=== PATIENT | male | born 1955 ===

== ENCOUNTER 2017-05-21 14:51 | Emergency (ER) | payer OTHER ==
[2017-05-21 14:51] VITALS: BMI 27.1
[2017-05-21] MEDS ORDERED: Sodium Chloride 0.9% 1,000 ML IV STA ×2 (15:13→19:59)
[2017-05-21 15:23] VITALS: TEMP 98.2
--- NOTE | 2017-05-21 15:42 | ED PDOC ---
Arrival/HPI - General Chief Complaint: Male Genitourinary Time Seen by Provider: 05/21/17 14:55 Historian: Patient, Family (son translates for patient) - History of Present Illness Narrative History of Present Illness (Text): 05/21/17 15:06 A 61 year old male, whose past medical history includes kidney stones, diabetes type 2, and HLD, whom is accompanied by his son, presents to the emergency department complaining of pain to tip of penis. Translated by son, patient reports also experiencing hematuria, with blood clots that sometimes cause urination to be stuck. Patient states this has never happened before. Has no other symptoms. PMD: Dr. Milagros Eastman Symptom Onset: Sudden Symptom Course: Unchanged Past Medical History - Provider Review Nursing Documentation Reviewed: Yes - Past History Past History: Non-Contributing - Infectious Disease Hx of Infectious Diseases: None - Tetanus Immunization Tetanus Immunization: Unknown - Cardiac Hx Hypertension: Yes Hx Pacemaker: No - Pulmonary Hx Asthma: Yes Hx Bronchitis: Yes (2 yrs ago) Hx Chronic Obstructive Pulmonary Disease (COPD): Yes - Neurological Hx Paralysis: No - HEENT Other/Comment: WEARS RX GLASSES - Renal Hx Kidney Stones: Yes (RIGHT 5 MM 07-12-12) - Endocrine/Metabolic Hx Diabetes Mellitus Type 2: Yes - Hematological/Oncological Hx Blood Transfusions: No Hx Blood Transfusion Reaction: No - Musculoskeletal/Rheumatological Hx Musculoskeletal Disorders: No - Psychiatric Hx Emotional Abuse: No Hx Physical Abuse: No Hx Substance Use: No - Past Surgical History Past Surgical History: Non-Contributing - Surgical History Other/Comment: for kidney stones - Anesthesia Hx Anesthesia: Yes Hx Anesthesia Reactions: No Hx Malignant Hyperthermia: No - Suicidal Assessment Feels Threatened In Home Enviroment: No Family/Social History - Physician Review Nursing Documentation Reviewed: Yes Family/Social History: No Known Family HX Smoking Status: Never Smoked Hx Alcohol Use: No Hx Substance Use: No Hx Substance Use Treatment: No Allergies/Home Meds Allergies/Adverse Reactions: Allergies No Known Allergies Allergy (Verified 06/10/12 13:22) Home Medications: Home Meds Medication Instructions Recorded Confirmed Albuterol Sulfate [Proventil Hfa] 1 puff IH Q6H PRN 05/21/17 05/21/17 Amitriptyline [Elavil] 20 mg PO DAILY 05/21/17 05/21/17 Aspirin [Adult Low Dose Aspirin EC] 1 tab PO DAILY 05/21/17 05/21/17 Divalproex [Depakote DR TAB] 1 tab PO HS 05/21/17 05/21/17 Enalapril Maleate [Vasotec] 1 tab PO DAILY 05/21/17 05/21/17 Famotidine [Pepcid] 1 tab PO DAILY 05/21/17 05/21/17 Fluticasone/Salmeterol [Airduo 1 puff IH BID 05/21/17 05/21/17 Respiclick 113-14 Mcg] Glimepiride [amaRYL] 1 tab PO BID 05/21/17 05/21/17 Insulin Glargine,Hum.rec.anlog 70 units SC DAILY 05/21/17 05/21/17 [Lantus Solostar] Loratadine [Claritin] 1 tab PO DAILY 05/21/17 05/21/17 Montelukast [Singulair] 1 tab PO DAILY 05/21/17 05/21/17 Mv,Min10/Folic Acid/D3/Ala/Lut 1 tab PO DAILY 05/21/17 05/21/17 [Strovite One Caplet] Simvastatin [Simvastatin] 1 tab PO HS 05/21/17 05/21/17 Sitagliptin Phos/Metformin HCl 1 tab PO BID 05/21/17 05/21/17 [Janumet 50-1,000 mg Tablet] Vitamin E Acid Succinate [Vitamin 1,000 unit PO DAILY 05/21/17 05/21/17 E] Zolpidem [Ambien] 1 tab PO HS PRN 05/21/17 05/21/17 Review of Systems - Physician Review All systems were reviewed & negative as marked: Yes - Review of Systems Constitutional: absent: Fevers, Night Sweats Gastrointestinal: absent: Diarrhea, Nausea, Vomiting Genitourinary Male: Hematuria, Other (pain to tip of penis) Physical Exam Vital Signs Reviewed: Yes Vital Signs Temp Pulse Resp BP Pulse Ox 05/21/17 20:05 99 H 17 123/67 96 05/21/17 17:00 92 H 18 122/66 98 05/21/17 15:55 98.2 F 102 H 17 115/58 L 97 05/21/17 15:23 98.2 F 110 H 17 110/58 L 96 Temperature: Afebrile Blood Pressure: Normal Pulse: Regular Respiratory Rate: Normal Appearance: Positive for: Well-Appearing Pain Distress: None Mental Status: Positive for: Alert and Oriented X 3 - Systems Exam Head: Present: Atraumatic, Normocephalic Pupils: Present: PERRL Extroacular Muscles: Present: EOMI Conjunctiva: Present: Normal Mouth: Present: Moist Mucous Membranes Neck: Present: Normal Range of Motion Respiratory/Chest: Present: Clear to Auscultation, Good Air Exchange. No: Respiratory Distress, Accessory Muscle Use Cardiovascular: Present: Regular Rate and Rhythm, Normal S1, S2. No: Murmurs Abdomen: Present: Normal Bowel Sounds. No: Tenderness, Distention, Peritoneal Signs Genitourinary Male: Present: Normal External Genitalia Back: Present: Normal Inspection Upper Extremity: Present: Normal Inspection. No: Cyanosis, Edema Lower Extremity: Present: Normal Inspection. No: Edema Neurological: Present: GCS=15, CN II-XII Intact, Speech Normal Skin: Present: Warm, Dry, Normal Color. No: Rashes Psychiatric: Present: Alert, Oriented x 3, Normal Insight, Normal Concentration Medical Decision Making ED Course and Treatment: 05/21/17 15:10 Impression: 61 year old male with pain to tip of penis and hematuria. No acute findings on physical examination. Plan: -- Abd/Pelvis CT -- Labs -- IV Fluids -- Urine Culture -- Urinalysis -- Reassess and disposition Progress Notes: 05/21/2017 15:58 Abd/Pelvis CT IMPRESSION: No acute abdominal pelvic pathology. No urolithiasis or evidence of recently passed genitourinary calculus. Dictator: Tony Alfred MD 05/21/17 19:[address] Talamantes, stating to him that I was unable to placed barth cath due to stricture of patient's tip of penis. Dr. Talamantes suggests that patient be sent home with antibiotics if he is ableto urinate normally, and to follow- up at his office in 3 days. - Lab Interpretations Lab Results: 05/21/17 15:10 05/21/17 15:10 Lab Results 05/21/17 16:50: Blood Type Confirm O POSITIVE 05/21/17 15:49: Blood Type O POSITIVE, Antibody Screen Negative, BBK History Checked No verified bt 05/21/17 15:10: Sodium 139, Potassium 4.3, Chloride 101, Carbon Dioxide 24, Anion Gap 18, BUN 20, Creatinine 0.9, Est GFR ( Amer) > 60, Est GFR (Non- Af Amer) > 60, Random Glucose 171 H, Calcium 9.2, Total Bilirubin 0.6, AST 29, ALT 36, Alkaline Phosphatase 64, Total Protein 7.3, Albumin 4.3, Globulin 3.0, Albumin/Globulin Ratio 1.4 05/21/17 15:10: Urine Color Red, Urine Appearance Turbid, Urine pH 6.0, Ur Specific [place] >= 1.030, Urine Protein 100 H, Urine Glucose (UA) 100 H, Urine Ketones Trace H, Urine Blood Large H, Urine Nitrate Negative, Urine Bilirubin Negative, Urine Urobilinogen 0.2, Ur Leukocyte Esterase Negative, Urine RBC Tntc , Urine WBC 2 - 5, Ur Epithelial Cells 0 - 2, Urine Bacteria Mod 05/21/17 15:10: PT 13.1 H, INR 1.15 H 05/21/17 15:10: WBC 16.4 H, RBC 4.32, Hgb 13.0 L, Hct 40.2 L, MCV 93.1, MCH 30.1 , MCHC 32.3, RDW 13.7, Plt Count 175, MPV 10.5, Gran % 82.0 H, Lymph % (Auto) 10.1 L, [place] % (Auto) 7.0 H, Eos % (Auto) 0.8 L, Baso % (Auto) 0.1, Gran # 13.44 H, Lymph # 1.7, [place] # 1.1 H, Eos # 0.1, Baso # 0.02 I have reviewed the lab results: Yes - RAD Interpretation Radiology Orders: 05/21/17 15:15 ABD & PELVIS W/O PO OR IV CONT [CT] Stat - Medication Orders Current Medication Orders: Sodium Chloride (Sodium Chloride 0.9%) 1,000 mls @ 999 mls/hr IV .Q1H1M STA Stop: 05/21/17 20:59 Last Admin: 05/21/17 20:05 Dose: 999 mls/hr eMAR Start Stop Document 05/21/17 20:05 IT (Rec: 05/21/17 20:05 [place] [facility] [id number] Intravenous Solution Start Date 05/21/17 Start Time 20:05 End Date 05/21/17 End time 21:05 Total Infusion Time 60 Discontinued Medications Sodium Chloride (Sodium Chloride 0.9%) 1,000 mls @ 999 mls/hr IV .Q1H1M STA Stop: 05/21/17 16:13 Last Admin: 05/21/17 15:32 Dose: 999 mls/hr eMAR Start Stop Document 05/21/17 15:32 OCS (Rec: 05/21/17 15:32 OCS [facility] [id number] Intravenous Solution Start Date 05/21/17 Start Time 15:32 End Date 05/21/17 End time 16:33 Total Infusion Time 61 Levofloxacin (Levaquin) 750 mg PO STAT STA Stop: 05/21/17 18:25 Last Admin: 05/21/17 19:06 Dose: 750 mg - PA / TRANSPORTATION MODELER / Resident Statement MD/DO has reviewed & agrees with the documentation as recorded. - Scribe Statement The provider has reviewed the documentation as recorded by the Duarte Bee Provider Scribe Attestation: All medical record entries made by the Duarte were at my direction and personally dictated by me. I have reviewed the chart and agree that the record accurately reflects my personal performance of the history, physical exam, medical decision making, and the department course for this patient. I have also personally directed, reviewed, and agree with the discharge instructions and disposition. Disposition/Present on Arrival - Present on Arrival Any Indicators Present on Arrival: No History of DVT/PE: No History of Uncontrolled Diabetes: No Urinary Catheter: No History of Decub. Ulcer: No History Surgical Site Infection Following: None - Disposition Have Diagnosis and Disposition been Completed?: Yes Diagnosis: Hematuria, Urethral stricture, UTI (urinary tract infection) Disposition: HOME/ ROUTINE Disposition Time: 20:10 Patient Plan: Discharge Condition: GOOD Discharge Instructions (ExitCare): Urinary Tract Infection in Men (ED), Acute Hematuria (ED), Dysuria (ED) Print Language: HONG KONGER Additional Instructions: Jonas - i AM SORRY THIS IS HAPPENING TO YOU. DRINK A LOT OF WATER AND SOME GATORAIDE THIS WEEKEND AND SEE THE UROLOGIST ON WEDNESDAY. HIS OFFICE NUMBER IS . rETURN TO US IF YOU CAN NOT URINATE THIS WEEKEND. bEST- dR. Kobe Flores Referrals: Milagros Eastman MD [Primary Care Provider] - Follow up with primary Forms: Kohort (Wolof)
[2017-05-21 15:46] LABS: BASO # 0.02 K/mm3 (0.0-2.0); BASO % 0.1 % (0.0-3.0); EOS # 0.1 (0.0-0.7); EOS % 0.8 % (1.5-5.0); GRAN # 13.44 (1.4-6.5); LYMPH # 1.7 (1.2-3.4); LYMPH % 10.1 % (22.0-35.0); MEAN CELL VOLUME 93.1 fl (80.0-105.0); MEAN CORPUSCULAR HEMOGLOBIN 30.1 pg (25.0-35.0); MEAN CORPUSCULAR HGB CONC 32.3 g/dl (31.0-37.0); MEAN PLATELET VOLUME 10.5 fl (7.0-11.0); MONO # 1.1 (0.1-0.6); RBC 4.32 10^6/uL (3.5-6.1); RED CELL DISTRIBUTION WIDTH 13.7 % (11.5-14.5); WHITE BLOOD COUNT 16.4 10^3/ul (4.5-11.0)
[2017-05-21 15:52] LABS: INR 1.15 (0.93-1.08); PROTHROMBIN TIME 13.1 SECONDS (9.4-12.5)
[2017-05-21 15:54] LABS: ALB/GLOB RATIO 1.4 (1.1-1.8); ALBUMIN 4.3 g/dL (3.0-4.8); ALT/SGPT 36 U/L (7-56); AST/SGOT 29 U/L (17-59); BLOOD UREA NITROGEN 20 mg/dL (7-21); CALCIUM 9.2 mg/dL (8.4-10.5); GFR AFRICAN-AMERICAN > 60; GFR NON-AFRICAN AMERICAN > 60
[2017-05-21 15:55] LABS: URINE BILIRUBIN NEGATIVE (NEGATIVE); URINE BLOOD LARGE (NEGATIVE); URINE GLUCOSE (UA) 100 mg/dL (NEGATIVE); URINE LEUKOCYTE ESTERASE NEGATIVE Leu/uL (NEGATIVE); URINE NITRATE NEGATIVE (NEGATIVE); URINE PROTEIN 100 mg/dL (<30 mg/dL); URINE UROBILINOGEN 0.2 E.U./dL (<1 E.U./dL)
[2017-05-21 15:56] LABS: URINE APPEARANCE TURBID (CLEAR); URINE COLOR RED (YELLOW); URINE RBC TNTC /hpf (0-2)
[2017-05-21 15:57] LABS: URINE BACTERIA MOD (NEG); URINE EPITHELIAL CELLS 0 - 2 /hpf (0-5)
--- NOTE | 2017-05-21 16:00 | CT ---
PROCEDURE: CT Abdomen and Pelvis without intravenous contrast HISTORY: Hematuria/Abdominal Pain, R/O stone COMPARISON: CT scan of the abdomen pelvis dated 06/10/2012. TECHNIQUE: Contiguous images were obtained from the domes of the diaphragms to the upper thighs without the administration of intravenous contrast. Oral contrast was not administered. Radiation dose: Total exam DLP = 590.6 mGy-cm. This CT exam was performed using one or more of the following dose reduction techniques: Automated exposure control, adjustment of the mA and/or kV according to patient size, and/or use of iterative reconstruction technique. FINDINGS: LOWER THORAX: Right and left lower lobe calcified granulomas. Bibasilar atelectasis. Heart size normal. LIVER: Unremarkable. No gross lesion or ductal dilatation. GALLBLADDER AND BILE DUCTS: Unremarkable. PANCREAS: Unremarkable. No gross lesion or ductal dilatation. SPLEEN: Unremarkable. ADRENALS: Unremarkable. No mass. KIDNEYS AND URETERS: Unremarkable. No hydronephrosis. No solid mass. VASCULATURE: Unremarkable. No aortic aneurysm. BOWEL: Unremarkable. No obstruction. No gross mural thickening. APPENDIX: Unremarkable. Normal appendix. PERITONEUM: Unremarkable. No free fluid. No free air. LYMPH NODES: Unremarkable. No enlarged lymph nodes. BLADDER: Unremarkable. REPRODUCTIVE: Unremarkable. BONES: Stable nonspecific 1.3 centimeter lucency in the right intertrochanteric femur (series 3, image 179). Spinal degenerative changes. Grade 1 retrolisthesis of L5 on S1. No acute fracture. OTHER FINDINGS: None. IMPRESSION: No acute abdominal pelvic pathology. No urolithiasis or evidence of recently passed genitourinary calculus. Additional stable findings as above.
[2017-05-21] MEDS ORDERED: levoFLOXacin 750 MG TAB PO STA (18:24)
[2017-05-21 20:06] VITALS: RESP 17
[2017-05-21 21:02] VITALS: BP 141/67; PULSE 89; O2SAT 98
== END 2017-05-21 21:02 | disposition home or self-care (01) ==
LOC: ED 14:51
DX: N39.0 Urinary tract infection, site not specified (principal); R31.9 Hematuria, unspecified; N35.9 Urethral stricture, unspecified; I10 Essential (primary) hypertension; E11.9 Type 2 diabetes mellitus without complications
CPT/HCPCS: 74176; 80053; 81001; 85025; 85610; 86850; 86900; 87086; 87181; 96360; 96361; 99284; J7040

== ENCOUNTER 2018-04-01 15:40 | Inpatient (IN) | payer MEDICARE, OTHER ==
[2018-04-01 15:48] VITALS: BMI 27.4
--- NOTE | 2018-04-01 16:52 | ED PDOC ---
Arrival/HPI - General Chief Complaint: Upper Extremity Problem/Injury Time Seen by Provider: 04/01/18 16:25 Historian: Patient, Spouse, Family (Son) - History of Present Illness Narrative History of Present Illness (Text): 04/01/18 16:52 A 62 year old male, whose past medical history includes hypertension, asthma, and diabetes, presents to the emergency department with a complaint of palpitations, abdominal pain, bloating, black stools, and lightheadedness. The patient's son translated for patient who is Estonian- speaking. The patient states that his symptoms began 2 days ago after eating out with his . He notes that he and his had the same food, but the who is at the bedside notes she felt fine. The patient also complaint of right shoulder pain. The patient denies fevers, chills, headache, dizziness, chest pain, shortness of breath, dyspnea on exertion, cough, nausea, vomiting, diarrhea, back pain, neck pain, urinary changes, or any other complaint. Time/Duration: Other (2 Days) Symptom Onset: Sudden Symptom Course: Unchanged Activities at Onset: Rest, Light Context: Home Past Medical History - Provider Review Nursing Documentation Reviewed: Yes - Past History Past History: Non-Contributing - Infectious Disease Hx of Infectious Diseases: None - Tetanus Immunization Tetanus Immunization: Unknown - Cardiac Hx Cardiac Disorders: Yes Hx Hypertension: Yes - Pulmonary Hx Respiratory Disorders: Yes Hx Asthma: Yes Hx Bronchitis: Yes ("SEVERAL YERAS AGO") Hx Chronic Obstructive Pulmonary Disease (COPD): Yes - Neurological Hx Neurological Disorder: No - HEENT Hx HEENT Disorder: No - Renal Hx Renal Disorder: Yes Hx Kidney Stones: Yes (RIGHT 5 MM 07-12-12) - Endocrine/Metabolic Hx Endocrine Disorders: Yes Hx Diabetes Mellitus Type 2: Yes - Hematological/Oncological Hx Blood Disorders: No - Integumentary Hx Dermatological Disorder: No - Musculoskeletal/Rheumatological Hx Musculoskeletal Disorders: Yes Other/Comment: HX:LEFT SHOULDER INJURY AT WORK. HX: RIGHT KNEE TORN MENISCUS - Gastrointestinal Hx Gastrointestinal Disorders: No - Genitourinary/Gynecological Hx Genitourinary Disorders: Yes Hx Hematuria: Yes - Psychiatric Hx Psychophysiologic Disorder: No Hx Substance Use: No - Past Surgical History Past Surgical History: Non-Contributing - Surgical History Hx Arthroscopy: Yes (RIGHT KNEE MENISCUS REPAIR) Hx Musculoskeletal Surgery: Yes (LEFT SHOULDER) Other/Comment: HX:SURGERY FOR KIDNEY STONES - Anesthesia Hx Anesthesia: Yes Hx Anesthesia Reactions: No Hx Malignant Hyperthermia: No - Suicidal Assessment Feels Threatened In Home Enviroment: No Family/Social History - Physician Review Nursing Documentation Reviewed: Yes Family/Social History: No Known Family HX Smoking Status: Never Smoked Hx Alcohol Use: No Hx Substance Use: No Hx Substance Use Treatment: No Allergies/Home Meds Allergies/Adverse Reactions: Allergies No Known Allergies Allergy (Verified 04/01/18 15:48) Home Medications: Home Meds Medication Instructions Recorded Confirmed Amitriptyline [Elavil] 20 mg PO DAILY 05/21/17 04/01/18 Aspirin [Adult Low Dose Aspirin EC] 1 tab PO DAILY 05/21/17 04/01/18 Divalproex [Depakote DR TAB] 1 tab PO HS 05/21/17 04/01/18 Famotidine [Pepcid] 1 tab PO DAILY 05/21/17 04/01/18 Fluticasone/Salmeterol [Airduo 1 puff IH BID 05/21/17 04/01/18 Respiclick 113-14 Mcg] Glimepiride [amaRYL] 1 tab PO BID 05/21/17 04/01/18 Insulin Glargine,Hum.rec.anlog 70 units SC DAILY 05/21/17 04/01/18 [Lantus Solostar] Montelukast [Singulair] 1 tab PO DAILY 05/21/17 04/01/18 Mv,Min10/Folic Acid/D3/Ala/Lut 1 tab PO DAILY 05/21/17 04/01/18 [Strovite One Caplet] RX: Enalapril Maleate [Vasotec] 1 tab PO DAILY 05/21/17 04/01/18 RX: Loratadine [Claritin] 1 tab PO DAILY 05/21/17 04/01/18 Simvastatin 1 tab PO HS 05/21/17 04/01/18 Vitamin E Acid Succinate [Vitamin 1,000 unit PO DAILY 05/21/17 04/01/18 E] Zolpidem [Ambien] 1 tab PO HS PRN 05/21/17 04/01/18 RX: MetFORMIN [glucoPHAGE] 1,000 mg PO DAILY 04/01/18 04/01/18 Sitagliptin Phos/Metformin HCl 1,000 mg PO DAILY 04/01/18 04/01/18 [Janumet 50-1,000 mg Tablet] Review of Systems - Physician Review All systems were reviewed & negative as marked: Yes - Review of Systems Constitutional: absent: Fevers Respiratory: absent: SOB, Cough Cardiovascular: Palpitations. absent: Chest Pain, RIDER Gastrointestinal: Abdominal Pain, Stool Changes (Black stool). absent: Diarrhea, Nausea, Vomiting Genitourinary Male: absent: Urinary Output Changes Musculoskeletal: absent: Back Pain, Neck Pain Neurological: absent: Headache, Dizziness Physical Exam Vital Signs Reviewed: Yes Vital Signs Temp Pulse Resp BP Pulse Ox 04/01/18 15:52 98.2 F 125 H 18 84/51 L 97 Temperature: Afebrile Blood Pressure: Hypotensive Pulse: Tachycardic Respiratory Rate: Normal Appearance: Positive for: Well-Appearing, Non-Toxic, Comfortable Pain Distress: None Mental Status: Positive for: Alert and Oriented X 3 - Systems Exam Head: Present: Atraumatic, Normocephalic Pupils: Present: PERRL Extroacular Muscles: Present: EOMI Conjunctiva: Present: Normal (No conjunctiva palor.) Mouth: Present: Moist Mucous Membranes Neck: Present: Normal Range of Motion Respiratory/Chest: Present: Clear to Auscultation, Good Air Exchange. No: Respiratory Distress, Accessory Muscle Use Cardiovascular: Present: Normal S1, S2, Tachycardic. No: Murmurs Abdomen: Present: Tenderness (Diffuse tenderness, more epigastric.), Distention. No: Normal Bowel Sounds (Decreased bowel sounds), Peritoneal Signs Rectal: Present: Other (Rectal exam performed. Bobbin Drier present. Black stool. Guaiac positive.) Back: Present: Normal Inspection Upper Extremity: Present: Normal Inspection. No: Cyanosis, Edema Lower Extremity: Present: Normal Inspection. No: Edema Neurological: Present: GCS=15, CN II-XII Intact, Speech Normal Skin: Present: Warm, Dry, Pale. No: Rashes Psychiatric: Present: Alert, Oriented x 3, Normal Insight, Normal Concentration Medical Decision Making ED Course and Treatment: 04/01/18 17:21 Impression: A 62 year old male presents to the emergency department with complaint of 2 day duration abdominal pain, black stools, right shoulder pain, lightheadedness, and bloating. Plan: -- EKG -- Chest X-ray -- Abdomen/Pelvis CT -- Labs -- Blood/ Urine Culture -- Urinalysis -- IV Fluids -- Reassess and disposition Prior Visits: Notes and results from previous visits were reviewed. Progress Notes: EKG: Ordered, reviewed, and independently interpreted the EKG. Rate : 102 BPM Rhythm : Sinus Tachycardia Interpretation : Normal intervals, normal axis. Early repole. Chest X-ray Signed By: Devang Champagne MD Date Signed: 04/01/18 171 IMPRESSION: No active disease. No significant interval change compared to the prior examination (s). 04/01/18 17:37: Code sepsis called. 04/01/18 18:22 Explained to him the risks and benefits of blood transfusion. Patient verbalized understanding and was translated from Estonian to Faroese by harleen Nicole, which patient and spouse requested. Patient consented for blood transfusion. PROCEDURE: CT Abdomen and Pelvis with contrast Signed By: Devang Champagne MD Date Signed: 04/01/181827 IMPRESSION: No significant or acute findings to account for/relate to the clinical presentation. Additional benign and/or incidental findings described above. No significant interval change compared to the prior examination (s). 04/01/18 18:55: Dr. Cole paged. 04/01/18 19:22: Case discussed in detail with Dr. Cole who accepts patient to her service. Requests Dr. Vaz for GI consult. - Lab Interpretations I have reviewed the lab results: Yes - RAD Interpretation Radiology Orders: 04/01/18 16:35 CHEST PORTABLE [RAD] Stat - EKG Interpretation Interpreted by ED Physician: Yes Type: 12 lead EKG - Scribe Statement The provider has reviewed the documentation as recorded by the Harleen Nicole Provider Scribe Attestation: All medical record entries made by the Harleen were at my direction and personally dictated by me. I have reviewed the chart and agree that the record accurately reflects my personal performance of the history, physical exam, medical decision making, and the department course for this patient. I have also personally directed, reviewed, and agree with the discharge instructions and disposition. Disposition/Present on Arrival - Present on Arrival Any Indicators Present on Arrival: No History of DVT/PE: No History of Uncontrolled Diabetes: No Urinary Catheter: No History of Decub. Ulcer: No History Surgical Site Infection Following: None - Disposition Have Diagnosis and Disposition been Completed?: Yes Diagnosis: GIB (gastrointestinal bleeding), Dehydration, Symptomatic anemia, Abdominal pain, Anemia requiring transfusions Disposition: HOSPITALIZED Disposition Time: 19:25 Patient Plan: Admission, Telemetry Patient Problems: Current Active Problems Problem Status Onset Abdominal pain Acute Anemia requiring transfusions Acute Dehydration Acute GIB (gastrointestinal bleeding) Acute Symptomatic anemia Acute Condition: STABLE
[2018-04-01] MEDS ORDERED: Sodium Chloride 0.9% 1,000 ML IV STA ×2 (16:56→17:54)
--- NOTE | 2018-04-01 17:19 | RAD ---
Date of service: 04/01/2018 HISTORY: dizzy COMPARISON: 09/30/2017 FINDINGS: LUNGS: No active pulmonary disease. PLEURA: No significant pleural effusion identified, no pneumothorax apparent. CARDIOVASCULAR: No atherosclerotic calcification present Normal. OSSEOUS STRUCTURES: No significant abnormalities. VISUALIZED UPPER ABDOMEN: Normal. OTHER FINDINGS: None. IMPRESSION: No active disease. No significant interval change compared to the prior examination(s).
[2018-04-01 17:27] LABS: BASO # 0.03 K/mm3 (0.0-2.0); BASO % 0.2 % (0.0-3.0); EOS # 0.1 (0.0-0.7); GRAN # 9.72 (1.4-6.5); GRAN % 75.1 % (50.0-68.0); LYMPH # 2.5 (1.2-3.4); LYMPH % 19.5 % (22.0-35.0); MEAN CELL VOLUME 91.2 fl (80.0-105.0); MEAN CORPUSCULAR HEMOGLOBIN 30.4 pg (25.0-35.0); MEAN CORPUSCULAR HGB CONC 33.3 g/dl (31.0-37.0); MEAN PLATELET VOLUME 9.5 fl (7.0-11.0); MONO # 0.6 (0.1-0.6); MONO % 4.2 % (1.0-6.0); RBC 2.17 10^6/uL (3.5-6.1); RED CELL DISTRIBUTION WIDTH 14.2 % (11.5-14.5)
[2018-04-01 17:28] LABS: VENOUS BLOOD GAS BASE EXCESS -4.7 mmol/L (0.0-2.0); VENOUS BLOOD GAS PO2 150 mm/Hg (30-55); VENOUS BLOOD PH 7.35 (7.32-7.43)
[2018-04-01 17:36] LABS: HEMOGLOBIN 6.6 g/dL (14.0-18.0)
[2018-04-01 17:39] LABS: ALB/GLOB RATIO 1.4 (1.1-1.8); ALBUMIN 3.3 g/dL (3.0-4.8); ALT/SGPT 26 U/L (7-56); AST/SGOT 19 U/L (17-59); BLOOD UREA NITROGEN 40 mg/dL (7-21); CALCIUM 8.5 mg/dL (8.4-10.5); GFR NON-AFRICAN AMERICAN > 60; LIPASE 317 U/L (23-300)
[2018-04-01] MEDS ORDERED: Iohexol 350 MG/100 ML VIAL ONE (17:39)
[2018-04-01 17:50] LABS: TROPONIN I 0.02 ng/mL
[2018-04-01] MEDS ORDERED: Piperacill/Tazo 4.5gm in NS 4.5 GM/100 ML BAG IVPB STA (18:01)
--- NOTE | 2018-04-01 18:32 | CT ---
Date of service: 04/01/2018 PROCEDURE: CT Abdomen and Pelvis with contrast HISTORY: abd pain/GIB COMPARISON: 05/21/2017. TECHNIQUE: Intravenous contrast dose: 100 cc Omnipaque 350. Radiation dose: Total exam DLP = 655.71 mGy-cm. This CT exam was performed using one or more of the following dose reduction techniques: Automated exposure control, adjustment of the mA and/or kV according to patient size, and/or use of iterative reconstruction technique. FINDINGS: LOWER THORAX: Unremarkable. LIVER: Unremarkable. No gross lesion or ductal dilatation. GALLBLADDER AND BILE DUCTS: Unremarkable. PANCREAS: Unremarkable. No gross lesion or ductal dilatation. SPLEEN: Unremarkable. ADRENALS: Unremarkable. No mass. KIDNEYS AND URETERS: Unremarkable. No hydronephrosis. No solid mass. VASCULATURE: Unremarkable. No aortic aneurysm. No atherosclerotic calcification or mural plaque present. BOWEL: Unremarkable. No obstruction. No gross mural thickening. APPENDIX: No abnormalities to suggest acute appendicitis. No right lower quadrant inflammatory processes identified. PERITONEUM: Unremarkable. No free fluid. No free air. LYMPH NODES: Unremarkable. No enlarged lymph nodes. BLADDER: Unremarkable. REPRODUCTIVE: Unremarkable. BONES: No acute fracture. Stable lucency right intertrochanteric region. OTHER FINDINGS: None. IMPRESSION: No significant or acute findings to account for/ related to the clinical presentation. Additional benign and/or incidental findings described above. No significant interval change compared to the prior examination(s).
[2018-04-01 18:46] LABS: URINE BILIRUBIN NEGATIVE (NEGATIVE); URINE BLOOD NEGATIVE (NEGATIVE); URINE GLUCOSE (UA) 250 mg/dL (NEGATIVE); URINE LEUKOCYTE ESTERASE SMALL Leu/uL (NEGATIVE); URINE PROTEIN NEGATIVE mg/dL (<30 mg/dL); URINE UROBILINOGEN 0.2 E.U./dL (<1 E.U./dL)
[2018-04-01 18:47] LABS: URINE APPEARANCE CLEAR (CLEAR); URINE COLOR LIGHT YELLOW (YELLOW)
[2018-04-01 18:51] LABS: URINE BACTERIA MOD (NEG); URINE RBC 0 - 2 /hpf (0-2)
[2018-04-01 20:37] LABS: VENOUS BLOOD GAS BASE EXCESS -3.5 mmol/L (0.0-2.0); VENOUS BLOOD GAS PO2 206 mm/Hg (30-55); VENOUS BLOOD PH 7.34 (7.32-7.43)
[2018-04-01] MEDS ORDERED: SALMETEROL IH SCH (22:15)
[2018-04-01] MEDS ORDERED: FLUTICASONE IH SCH (22:15)
--- NOTE | 2018-04-01 23:53 | HP ---
DATE OF EXAM: 04/01/2018 The patient is a 62-year-old male. The patient was seen and examined on 04/01/2018. CHIEF COMPLAINT: Abdominal pain. HISTORY OF PRESENT ILLNESS: Mr. Elías Madden is a 62-year-old male with past medical history of hypertension, asthma, and diabetes mellitus, came to the Emergency Department with the complaints of palpitation, abdominal pain, bloating, black stool, and lightheadedness. The patient's son was on the bedside. The patient states that his symptoms began two days ago after eating out with his . His Berna was sitting on the bedside also. He noticed that he and his had seafood, but the who is at the bedside noticed she felt fine. The patient is also complaining of right shoulder pain. The patient denies fever, chills, headache, dizziness, cough, nausea or vomiting. The patient looks pale for me. Discussion done with ER physician. Call GI consult. the patient. PAST MEDICAL HISTORY: As above. Hypertension, asthma, diabetes mellitus, bronchitis several years ago, COPD; yes, right kidney stones, left shoulder injury at work, right knee torn meniscus, and hematuria. FAMILY HISTORY: Father and mother, noncontributory. HABITS: Never smoked. No drugs. No ethanol. ALLERGIES: THE PATIENT IS NOT ALLERGIC WITH ANY MEDICATIONS. HOME MEDICATIONS: Depakote, Vasotec, Pepcid, glimepiride, Claritin, Singulair, Ambien, and Glucophage. REVIEW OF SYSTEMS: The patient was seen and examined on the bedside in the ER. , Berna and son is on the bedside. Complaining of abdominal pain and looks pale. No cough or shortness of breath. Having stool changes. No diarrhea, nausea or vomiting. No urinary changes. No back pain. No headache. No dizziness. PHYSICAL EXAMINATION VITAL SIGNS: Temperature 98.2, pulse 125, respiratory rate 18, blood pressure 84/51 and pulse oximetry 94. HEAD: Head; normocephalic and atraumatic. Eyes; PERRLA. Extraocular muscles intact. Conjunctivae clear. Nose patent. Mucous membranes moist. NECK: Supple. No carotid bruits, JVD, or thyromegaly. CHEST: Bilaterally symmetrical. HEART: S1 and S2 positive. LUNGS: Clear to auscultation. ABDOMEN: Diffuse tenderness more in epigastric. RECTAL EXAMINATION: Showed black stool, guaiac positive. EXTREMITIES: No edema. No cyanosis. NEUROLOGIC: The patient is awake and alert. Moving all four extremities. No focal deficits. LABORATORY DATA: White blood cell 13, hemoglobin 6.6, hematocrit 19.8, and platelets 185. Sodium 133, potassium 4.4, BUN 40, creatinine 1. Glucose 219. Magnesium 1.6. ASSESSMENT AND PLAN: Mr. Elías Madden is a 62-year-old male with leukocytosis, severe anemia, dehydrated, hyperglycemia, hypomagnesemia, glucosuria, ketonuria, and urinary tract infection; did CAT scan of abdomen and pelvis, reviewed by me, hypertension, asthma, diabetes mellitus, history of bronchitis and chronic obstructive pulmonary disease, history of kidney stones, history of left shoulder injury at work, right knee torn meniscus repair, and status post arthroscopy. We admitted the patient. Blood cultures done. Urine cultures done. Gave normal saline. Zosyn give. Gastrointestinal consult called with Dr. Vaz. Discussion done with the son and . Repeat labs. We will follow. Elina Cole MD
[2018-04-02] MEDS: Magnesium Oxide 400 mg Tab UD PO SCH ×2 (01:26→09:43)
[2018-04-02] MEDS: metroNIDAZOLE IV 500 mg/100 ml 500 MG/100 ML BAG IVPB SCH ×3 (05:18→22:12)
[2018-04-02] MEDS ORDERED: Sodium Chloride 0.9% 100 ML IV SCH (08:00)
[2018-04-02 08:32] LABS: IRON 75 ug/dL (45-180)
[2018-04-02] MEDS: Dextrose 5%/0.9% NS 1,000 ML IV SCH ×2 (08:36→17:24)
[2018-04-02 08:39] LABS: HEMOGLOBIN 8.4 g/dL (14.0-18.0); MEAN CELL VOLUME 90.4 fl (80.0-105.0); MEAN CORPUSCULAR HEMOGLOBIN 30.9 pg (25.0-35.0); MEAN CORPUSCULAR HGB CONC 34.1 g/dl (31.0-37.0); MEAN PLATELET VOLUME 9.6 fl (7.0-11.0); RBC 2.72 10^6/uL (3.5-6.1); RED CELL DISTRIBUTION WIDTH 14.4 % (11.5-14.5); WHITE BLOOD COUNT 9.5 10^3/uL (4.5-11.0)
[2018-04-02 08:41] LABS: % IRON SATURATION 25 % (20-55); TOTAL IRON BINDING CAPACITY 294 ug/dL (261-462)
[2018-04-02 08:44] LABS: TROPONIN I < 0.01 ng/mL
[2018-04-02 08:49] LABS: BLOOD UREA NITROGEN 21 mg/dL (7-21); GFR NON-AFRICAN AMERICAN > 60; HDL CHOLESTEROL 29 mg/dL (29-60)
[2018-04-02 08:54] LABS: LDL CHOLESTEROL 70 mg/dL (0-129)
[2018-04-02 09:14] LABS: INR 1.05; PARTIAL THROMBOPLASTIN TIME 27.6 Seconds (25.1-36.5); PROTHROMBIN TIME 12.1 SECONDS (9.4-12.5)
[2018-04-02] MEDS: Divalproex 125 mg EC Sprinkle Cap PO SCH ×2 (09:42→22:07)
[2018-04-02] MEDS: Insulin Reg-LOW-Coverage SC SCH ×4 (09:43→22:41)
--- NOTE | 2018-04-02 09:56 | CARD ---
APPROVED REPORT Date of service: 04/01/2018 EKG Measurement Heart [id number] <Conclusion> Sinus tachycardia ST elevation, consider early repolarization, pericarditis, or injury Abnormal ECG
[2018-04-02] MEDS: Pantoprazole 40mg/100mL NS 40 MG/100 ML BAG IVPB SCH ×3 (10:25→22:08)
[2018-04-02] MEDS: cefTRIAXone 1 gm 1 GM/100 ML BAG IVPB SCH (10:25)
--- NOTE | 2018-04-02 12:19 | CP.PCM.CON ---
<Emily Nichole - Last Filed: 04/02/18 12:20> History of Present Illness - History of Present Illness History of Present Illness: GI Fellow PGY5 Consult Note This is a 62 year old male with a past medical history includes HTN, HLD, DM, Asthma who presents to the ER with a complaints of palpitations, abdominal pain, bloating, black stools, and lightheadedness. The patient states that his symptoms began 2 days ago. Pt reports noticing black colored stool. Last BM was yesterday morning. He denies any hx of GI bleed, denies any NSAID use. He reports having colonoscopy 10yrs ago that was normal with no reported polyps. In the ER pt was found to have a Hgb 6.6 from baseline of 13 (04/2017). Pt was tachycardia and hypotensive. GI team was not called to discuss acute pt on presentation in the ER. Pt has now received 2U PRBCs overnight, no active bleeding and Vitals borderline stable. ROS: A 12pt ROS was negative except as above Pmhx; As stated in HPI PsHx: Shoulder, knee repair and kidney stone procedure FHx: Negative for colon cancer SHx: Denies tobacco, etoh, drugs Past Patient History - Infectious Disease Hx of Infectious Diseases: None - Tetanus Immunizations Tetanus Immunization: Unknown - Past Medical History & Family History Past Medical History?: Yes - Past Social History Smoking Status: Never Smoked - CARDIAC Hx Cardiac Disorders: Yes Hx Hypertension: Yes - PULMONARY Hx Respiratory Disorders: Yes Hx Asthma: Yes Hx Bronchitis: Yes ("SEVERAL YERAS AGO") Hx Chronic Obstructive Pulmonary Disease (COPD): Yes - NEUROLOGICAL Hx Neurological Disorder: No - HEENT Hx HEENT Problems: No - RENAL Hx Chronic Kidney Disease: Yes Hx Kidney Stones: Yes (RIGHT 5 MM 07-12-12) - ENDOCRINE/METABOLIC Hx Endocrine Disorders: Yes Hx Diabetes Mellitus Type 2: Yes - HEMATOLOGICAL/ONCOLOGICAL Hx Blood Disorders: No - INTEGUMENTARY Hx Dermatological Problems: No - MUSCULOSKELETAL/RHEUMATOLOGICAL Hx Falls: No - GASTROINTESTINAL Hx Gastrointestinal Disorders: No - GENITOURINARY/GYNECOLOGICAL Hx Genitourinary Disorders: Yes Hx Hematuria: Yes - PSYCHIATRIC Hx Psychophysiologic Disorder: No - SURGICAL HISTORY Hx Musculoskeletal Surgery: Yes (LEFT SHOULDER) Other/Comment: HX:SURGERY FOR KIDNEY STONES - ANESTHESIA Hx Anesthesia: Yes Hx Anesthesia Reactions: No Hx Malignant Hyperthermia: No Meds Allergies/Adverse Reactions: Allergies Allergy/AdvReac Type Severity Reaction Status Date / Time No Known Allergies Allergy Verified 04/01/18 15:48 - Medications Medications: Current Medications Amitriptyline HCl (Elavil) 20 mg PO DAILY [facility] Last Admin: 04/02/18 09:43 Dose: Not Given Divalproex Sodium (Depakote Sprinkles) 125 mg PO HS [facility] Last Admin: 04/02/18 09:42 Dose: Not Given Ceftriaxone Sodium (Rocephin 1 Gram Ivpb) 1 gm in 100 mls @ 100 mls/hr IVPB DAILY [facility]; Protocol Last Admin: 04/02/18 10:25 Dose: 100 mls/hr Metronidazole (Flagyl) 500 mg in 100 mls @ 100 mls/hr IVPB Q8 [facility]; Protocol Last Admin: 04/02/18 05:18 Dose: 100 mls/hr Pantoprazole Sodium (Protonix 40mg Ivpb) 40 mg in 100 mls @ 20 mls/hr IVPB .Q5H [facility] Last Admin: 04/02/18 10:25 Dose: 20 mls/hr Sodium Chloride (Sodium Chloride 0.9%) 100 mls @ 125 mls/hr IV .Q48M [facility] Dextrose/Sodium Chloride (Dextrose 5%/0.9% Ns 1000 Ml) 1,000 mls @ 100 mls/hr IV .Q10H [facility] Last Admin: 04/02/18 08:36 Dose: 100 mls/hr Insulin Human Regular (Humulin R Low) 0 units SC ACHS [facility]; Protocol Last Admin: 04/02/18 09:43 Dose: Not Given Loratadine (Claritin) 10 mg PO DAILY [facility] Last Admin: 04/02/18 09:42 Dose: Not Given Magnesium Oxide (Mag-Ox) 400 mg PO BID [facility] Last Admin: 04/02/18 09:43 Dose: Not Given Non-Formulary Medication (Fluticasone/Salmeterol [Airduo Respiclick 113-14 Mcg]) 1 puff IH BID [facility] Ondansetron HCl (Zofran Inj) 4 mg IVP Q6 PRN PRN Reason: Nausea/Vomiting Physical Exam - Constitutional Appears: Non-toxic, No Acute Distress - Eye Exam Eye Exam: EOMI, Normal appearance, PERRL Pupil Exam: PERRL - ENT Exam ENT Exam: Mucous Membranes Dry - Respiratory Exam Respiratory Exam: Clear to Auscultation Bilateral, NORMAL BREATHING PATTERN - Cardiovascular Exam Cardiovascular Exam: Tachycardia, +S1, +S2 - GI/Abdominal Exam GI & Abdominal Exam: Normal Bowel Sounds, Soft. absent: Distended, Organomegaly, Tenderness - Rectal Exam Rectal Exam: Black Stool - Extremities Exam Extremities exam: Positive for: full ROM, normal inspection - Neurological Exam Neurological exam: Alert, Oriented x3 - Psychiatric Exam Psychiatric exam: Normal Affect, Normal Mood - Skin Skin Exam: Dry, Intact, Normal Color, Warm Results - Vital Signs Recent Vital Signs: Last Vital Signs Temp 98.7 F 04/02/18 06:00 Pulse 82 04/02/18 10:00 Resp 18 04/02/18 06:00 BP 103/65 04/02/18 06:00 Pulse Ox 98 04/02/18 06:00 - Labs Result Diagrams: 04/02/18 08:00 04/02/18 08:15 Labs: Laboratory Results - last 24 hr 04/01/18 04/01/18 04/01/18 16:10 17:10 17:10 WBC 13.0 H RBC 2.17 L Hgb 6.6 L* D Hct 19.8 L* MCV 91.2 MCH 30.4 MCHC 33.3 RDW 14.2 Plt Count 185 MPV 9.5 Gran % 75.1 H Lymph % (Auto) 19.5 L [place] % (Auto) 4.2 Eos % (Auto) 1.0 L Baso % (Auto) 0.2 Gran # 9.72 H Lymph # (Auto) 2.5 [place] # (Auto) 0.6 Eos # (Auto) 0.1 Baso # (Auto) 0.03 PT INR APTT pO2 150 H VBG pH 7.35 VBG pCO2 37.0 L VBG HCO3 20.4 L VBG Total CO2 21.5 L VBG O2 Sat (Calc) 97.8 H VBG Base Excess -4.7 L VBG Potassium 4.4 Sodium 134.0 Chloride 105.0 Glucose 238 H Lactate 4.1 H* FiO2 21.0 Potassium Carbon Dioxide Anion Gap BUN Creatinine Est GFR ( Amer) Est GFR (Non-Af Amer) POC Glucose (mg/dL) 194 H Random Glucose Calcium Phosphorus Magnesium Iron TIBC % Saturation Total Bilirubin AST ALT Alkaline Phosphatase Lactate Dehydrogenase Total Creatine Kinase Troponin I Total Protein Albumin Globulin Albumin/Globulin Ratio Triglycerides Cholesterol LDL Cholesterol Direct HDL Cholesterol Lipase TSH 3rd Generation Venous Blood Potassium 4.4 Urine Color Urine Appearance Urine pH Ur Specific [place] Urine Protein Urine Glucose (UA) Urine Ketones Urine Blood Urine Nitrate Urine Bilirubin Urine Urobilinogen Ur Leukocyte Esterase Urine RBC Urine WBC Ur Epithelial Cells Urine Bacteria Blood Type Antibody Screen Crossmatch BBK History Checked 04/01/18 04/01/18 04/01/18 17:10 18:42 18:42 WBC RBC Hgb Hct MCV MCH MCHC RDW Plt Count MPV Gran % Lymph % (Auto) [place] % (Auto) Eos % (Auto) Baso % (Auto) Gran # Lymph # (Auto) [place] # (Auto) Eos # (Auto) Baso # (Auto) PT INR APTT pO2 VBG pH VBG pCO2 VBG HCO3 VBG Total CO2 VBG O2 Sat (Calc) VBG Base Excess VBG Potassium Sodium 133 Chloride 104 Glucose Lactate FiO2 Potassium 4.4 Carbon Dioxide 20 L Anion Gap 13 BUN 40 H Creatinine 1.0 Est GFR ( Amer) > 60 Est GFR (Non-Af Amer) > 60 POC Glucose (mg/dL) Random Glucose 219 H Calcium 8.5 Phosphorus 2.8 Magnesium 1.6 L Iron TIBC % Saturation Total Bilirubin 0.2 AST 19 ALT 26 Alkaline Phosphatase 61 Lactate Dehydrogenase Total Creatine Kinase Troponin I 0.02 Total Protein 5.6 L Albumin 3.3 Globulin 2.3 Albumin/Globulin Ratio 1.4 Triglycerides Cholesterol LDL Cholesterol Direct HDL Cholesterol Lipase 317 H TSH 3rd Generation Venous Blood Potassium Urine Color Light yellow Urine Appearance Clear Urine pH 6.0 Ur Specific [place] 1.020 Urine Protein Negative Urine Glucose (UA) 250 H Urine Ketones Trace H Urine Blood Negative Urine Nitrate Negative Urine Bilirubin Negative Urine Urobilinogen 0.2 Ur Leukocyte Esterase Small H Urine RBC 0 - 2 Urine WBC 1 - 3 Ur Epithelial Cells None Urine Bacteria Mod Blood Type O POSITIVE Antibody Screen Negative Crossmatch See Detail BBK History Checked Patient has bt 04/01/18 04/02/18 04/02/18 20:30 07:26 08:00 WBC 9.5 D RBC 2.72 L Hgb 8.4 L Hct 24.6 L MCV 90.4 MCH 30.9 MCHC 34.1 RDW 14.4 Plt Count 155 MPV 9.6 Gran % Lymph % (Auto) [place] % (Auto) Eos % (Auto) Baso % (Auto) Gran # Lymph # (Auto) [place] # (Auto) Eos # (Auto) Baso # (Auto) PT INR APTT pO2 206 H VBG pH 7.34 VBG pCO2 41.0 VBG HCO3 22.1 VBG Total CO2 23.4 VBG O2 Sat (Calc) 98.6 H VBG Base Excess -3.5 L VBG Potassium 4.1 Sodium 137.0 Chloride 108.0 H Glucose 154 H Lactate 1.9 FiO2 21.0 Potassium Carbon Dioxide Anion Gap BUN Creatinine Est GFR ( Amer) Est GFR (Non-Af Amer) POC Glucose (mg/dL) 79 Random Glucose Calcium Phosphorus Magnesium Iron TIBC % Saturation Total Bilirubin AST ALT Alkaline Phosphatase Lactate Dehydrogenase Total Creatine Kinase Troponin I Total Protein Albumin Globulin Albumin/Globulin Ratio Triglycerides Cholesterol LDL Cholesterol Direct HDL Cholesterol Lipase TSH 3rd Generation Venous Blood Potassium 4.1 Urine Color Urine Appearance Urine pH Ur Specific [place] Urine Protein Urine Glucose (UA) Urine Ketones Urine Blood Urine Nitrate Urine Bilirubin Urine Urobilinogen Ur Leukocyte Esterase Urine RBC Urine WBC Ur Epithelial Cells Urine Bacteria Blood Type Antibody Screen Crossmatch BBK History Checked 04/02/18 04/02/18 04/02/18 08:15 08:15 08:15 WBC RBC Hgb Hct MCV MCH MCHC RDW Plt Count MPV Gran % Lymph % (Auto) [place] % (Auto) Eos % (Auto) Baso % (Auto) Gran # Lymph # (Auto) [place] # (Auto) Eos # (Auto) Baso # (Auto) PT INR APTT pO2 VBG pH VBG pCO2 VBG HCO3 VBG Total CO2 VBG O2 Sat (Calc) VBG Base Excess VBG Potassium Sodium 137 Chloride 108 H Glucose Lactate FiO2 Potassium 4.0 Carbon Dioxide 26 Anion Gap 7 L BUN 21 Creatinine 0.8 Est GFR ( Amer) > 60 Est GFR (Non-Af Amer) > 60 POC Glucose (mg/dL) Random Glucose 90 Calcium 8.0 L Phosphorus Magnesium Iron 75 TIBC 294 % Saturation 25 Total Bilirubin AST ALT Alkaline Phosphatase Lactate Dehydrogenase 286 L Total Creatine Kinase 67 Troponin I < 0.01 D Total Protein Albumin Globulin Albumin/Globulin Ratio Triglycerides 185 H Cholesterol 110 L LDL Cholesterol Direct 70 HDL Cholesterol 29 Lipase TSH 3rd Generation 5.16 H Venous Blood Potassium Urine Color Urine Appearance Urine pH Ur Specific [place] Urine Protein Urine Glucose (UA) Urine Ketones Urine Blood Urine Nitrate Urine Bilirubin Urine Urobilinogen Ur Leukocyte Esterase Urine RBC Urine WBC Ur Epithelial Cells Urine Bacteria Blood Type Antibody Screen Crossmatch BBK History Checked 04/02/18 08:30 WBC RBC Hgb Hct MCV MCH MCHC RDW Plt Count MPV Gran % Lymph % (Auto) [place] % (Auto) Eos % (Auto) Baso % (Auto) Gran # Lymph # (Auto) [place] # (Auto) Eos # (Auto) Baso # (Auto) PT 12.1 INR 1.05 APTT 27.6 pO2 VBG pH VBG pCO2 VBG HCO3 VBG Total CO2 VBG O2 Sat (Calc) VBG Base Excess VBG Potassium Sodium Chloride Glucose Lactate FiO2 Potassium Carbon Dioxide Anion Gap BUN Creatinine Est GFR ( Amer) Est GFR (Non-Af Amer) POC Glucose (mg/dL) Random Glucose Calcium Phosphorus Magnesium Iron TIBC % Saturation Total Bilirubin AST ALT Alkaline Phosphatase Lactate Dehydrogenase Total Creatine Kinase Troponin I Total Protein Albumin Globulin Albumin/Globulin Ratio Triglycerides Cholesterol LDL Cholesterol Direct HDL Cholesterol Lipase TSH 3rd Generation Venous Blood Potassium Urine Color Urine Appearance Urine pH Ur Specific [place] Urine Protein Urine Glucose (UA) Urine Ketones Urine Blood Urine Nitrate Urine Bilirubin Urine Urobilinogen Ur Leukocyte Esterase Urine RBC Urine WBC Ur Epithelial Cells Urine Bacteria Blood Type Antibody Screen Crossmatch BBK History Checked Assessment & Plan - Assessment and Plan (Free Text) Assessment: 1. Acute Anemia 2. UGIB, melena 3. Hx of HTN, HLD, DM -Continue supportive care -Will order IVFs with borderline BP and tachycardia D5NS@100cc/hr -NPO -No active GI bleeding at this time, Hgb stable after 2U PRBCs -Monitor H/H and transfuse goal >7 -Rectal exam with black stool -Start PPI drip -Will order 2U PRBCs on hold for procedure -Plan for urgent EGD today to r/o UGIB source -Case discussed with Dr. Vaz and nursing staff <Beth Vaz V - Last Filed: 04/02/18 20:10> Meds - Medications Medications: Current Medications Amitriptyline HCl (Elavil) 20 mg PO DAILY [facility] Last Admin: 04/02/18 09:43 Dose: Not Given Divalproex Sodium (Depakote Sprinkles) 125 mg PO HS [facility] Last Admin: 04/02/18 09:42 Dose: Not Given Ceftriaxone Sodium (Rocephin 1 Gram Ivpb) 1 gm in 100 mls @ 100 mls/hr IVPB DAILY [facility]; Protocol Last Admin: 04/02/18 10:25 Dose: 100 mls/hr Metronidazole (Flagyl) 500 mg in 100 mls @ 100 mls/hr IVPB Q8 [facility]; Protocol Last Admin: 04/02/18 16:00 Dose: 100 mls/hr Pantoprazole Sodium (Protonix 40mg Ivpb) 40 mg in 100 mls @ 20 mls/hr IVPB .Q5H [facility] Last Admin: 04/02/18 17:25 Dose: 20 mls/hr Sodium Chloride (Sodium Chloride 0.9%) 100 mls @ 125 mls/hr IV .Q48M [facility] Dextrose/Sodium Chloride (Dextrose 5%/0.9% Ns 1000 Ml) 1,000 mls @ 100 mls/hr IV .Q10H [facility] Last Admin: 04/02/18 17:24 Dose: 100 mls/hr Insulin Human Regular (Humulin R Low) 0 units SC ACHS [facility]; Protocol Last Admin: 04/02/18 17:13 Dose: Not Given Loratadine (Claritin) 10 mg PO DAILY [facility] Last Admin: 04/02/18 09:42 Dose: Not Given Magnesium Oxide (Mag-Ox) 400 mg PO BID [facility] Last Admin: 04/02/18 09:43 Dose: Not Given Non-Formulary Medication (Fluticasone/Salmeterol [Airduo Respiclick 113-14 Mcg]) 1 puff IH BID [facility] Ondansetron HCl (Zofran Inj) 4 mg IVP Q6 PRN PRN Reason: Nausea/Vomiting Results - Vital Signs Recent Vital Signs: Last Vital Signs Temp 99.2 F 04/02/18 20:06 Pulse 70 04/02/18 20:06 Resp 20 04/02/18 20:06 BP 113/65 04/02/18 20:06 Pulse Ox 97 04/02/18 18:00 - Labs Result Diagrams: 04/02/18 08:00 04/02/18 08:15 Labs: Laboratory Results - last 24 hr 04/01/18 04/01/18 04/02/18 18:42 20:30 07:26 WBC RBC Hgb Hct MCV MCH MCHC RDW Plt Count MPV PT INR APTT pO2 206 H VBG pH 7.34 VBG pCO2 41.0 VBG HCO3 22.1 VBG Total CO2 23.4 VBG O2 Sat (Calc) 98.6 H VBG Base Excess -3.5 L VBG Potassium 4.1 Sodium 137.0 Chloride 108.0 H Glucose 154 H Lactate 1.9 FiO2 21.0 Potassium Carbon Dioxide Anion Gap BUN Creatinine Est GFR ( Amer) Est GFR (Non-Af Amer) POC Glucose (mg/dL) 79 Random Glucose Calcium Iron TIBC % Saturation Lactate Dehydrogenase Total Creatine Kinase Troponin I Triglycerides Cholesterol LDL Cholesterol Direct HDL Cholesterol Vitamin B12 Folate TSH 3rd Generation Venous Blood Potassium 4.1 Blood Type O POSITIVE Antibody Screen Negative Crossmatch See Detail BBK History Checked Patient has bt 04/02/18 04/02/18 04/02/18 08:00 08:15 08:15 WBC 9.5 D RBC 2.72 L Hgb 8.4 L Hct 24.6 L MCV 90.4 MCH 30.9 MCHC 34.1 RDW 14.4 Plt Count 155 MPV 9.6 PT INR APTT pO2 VBG pH VBG pCO2 VBG HCO3 VBG Total CO2 VBG O2 Sat (Calc) VBG Base Excess VBG Potassium Sodium 137 Chloride 108 H Glucose Lactate FiO2 Potassium 4.0 Carbon Dioxide 26 Anion Gap 7 L BUN 21 Creatinine 0.8 Est GFR ( Amer) > 60 Est GFR (Non-Af Amer) > 60 POC Glucose (mg/dL) Random Glucose 90 Calcium 8.0 L Iron 75 TIBC 294 % Saturation 25 Lactate Dehydrogenase 286 L Total Creatine Kinase 67 Troponin I < 0.01 D Triglycerides 185 H Cholesterol 110 L LDL Cholesterol Direct 70 HDL Cholesterol 29 Vitamin B12 287 Folate 14.1 TSH 3rd Generation Venous Blood Potassium Blood Type Antibody Screen Crossmatch BBK History Checked 04/02/18 04/02/18 04/02/18 08:15 08:30 11:48 WBC RBC Hgb Hct MCV MCH MCHC RDW Plt Count MPV PT 12.1 INR 1.05 APTT 27.6 pO2 VBG pH VBG pCO2 VBG HCO3 VBG Total CO2 VBG O2 Sat (Calc) VBG Base Excess VBG Potassium Sodium Chloride Glucose Lactate FiO2 Potassium Carbon Dioxide Anion Gap BUN Creatinine Est GFR ( Amer) Est GFR (Non-Af Amer) POC Glucose (mg/dL) 136 H Random Glucose Calcium Iron TIBC % Saturation Lactate Dehydrogenase Total Creatine Kinase Troponin I Triglycerides Cholesterol LDL Cholesterol Direct HDL Cholesterol Vitamin B12 Folate TSH 3rd Generation 5.16 H Venous Blood Potassium Blood Type Antibody Screen Crossmatch BBK History Checked Attending/Attestation - Attestation I have personally seen and examined this patient.: Yes I have fully participated in the care of the patient.: Yes I have reviewed all pertinent clinical information: Yes Notes (Text): This is an addendum to GI consult report dictated by the GI Fellow. The patient was seen and evaluated earlier. Medical records, lab studies, imagings were reviewed. Last 24 hours events reviewed. Agreed with the above treatment plan as outlined in GI Fellow's notes with the addition of the following This 62 year old patient was admitted with melena and significant drop in hemoglobin. His hemoglobin on admission in the ER was 6.6. He was tachycardic and hypotensive. S/p 2 units transfusion. On examination abdomen soft, nontender, no mass. CT was reviewed. Plan for emergency endoscopy. Risk vs. benefits alternatives including perforation and severe bleeding requiring surgery was explained. Patient understood and consent was obtained. 04/02/18 20:08
[2018-04-02 13:07] LABS: FOLATE 14.1 ng/mL
[2018-04-02] MEDS ORDERED: Lactated Ringer's 1,000 ML IV SCH (13:45)
[2018-04-02] MEDS ORDERED: Phenylephrine 10 mg/ml Inj ONE (13:46)
[2018-04-02] MEDS ORDERED: Propofol 10 mg/ml Inj (20 ML) ONE ×2 (13:48→14:41)
[2018-04-02] MEDS ORDERED: metroNIDAZOLE IV 500 mg/100 ml 500 MG/100 ML BAG ONE (15:59)
--- NOTE | 2018-04-02 16:04 | CP.PCM.CON ---
History of Present Illness - History of Present Illness History of Present Illness: General Surgery consult note for Dr. Burch Consulted for GI Bleed Patient is a 62 yr old male with PMH HTN, HLD, DM and asthma who presented to the ED 04/01 for complaints of palpitations, abdominal pain, bloating, black stools, and lightheadedness. Patient was determined to have a GI bleed and Dr. Vaz was consulted for endoscopic evaluation. During endoscopy patient was found to have a bleeding vessel at the duodenal bulb surrounded by a cratered sclerotic ulceration. An attempt to place clips was made but d/t sclerosis and clip type clip was not able to be placed. Hemostasis was achieved with injection and cautery, no further bleeding was noted at the site. Patient was hemodynamically stable throughout the procedure and did not require pressor support. Upon completing the procedure the patient was transferred to ICU in stable condition. PMH: HTN, HLD, DM, asthma PSH:: Shoulder, knee repair and kidney stone procedure FHx: Negative for colon cancer SHx: Denies tobacco, etoh, drugs Review of Systems - Review of Systems All systems: reviewed and no additional remarkable complaints except (As per HPI) Past Patient History - Infectious Disease Hx of Infectious Diseases: None - Tetanus Immunizations Tetanus Immunization: Unknown - Past Medical History & Family History Past Medical History?: Yes - Past Social History Smoking Status: Never Smoked - CARDIAC Hx Cardiac Disorders: Yes Hx Hypertension: Yes - PULMONARY Hx Respiratory Disorders: Yes Hx Asthma: Yes Hx Bronchitis: Yes ("SEVERAL YERAS AGO") Hx Chronic Obstructive Pulmonary Disease (COPD): Yes - NEUROLOGICAL Hx Neurological Disorder: No - HEENT Hx HEENT Problems: No - RENAL Hx Chronic Kidney Disease: Yes Hx Kidney Stones: Yes (RIGHT 5 MM 07-12-) - ENDOCRINE/METABOLIC Hx Endocrine Disorders: Yes Hx Diabetes Mellitus Type 2: Yes - HEMATOLOGICAL/ONCOLOGICAL Hx Blood Disorders: No - INTEGUMENTARY Hx Dermatological Problems: No - MUSCULOSKELETAL/RHEUMATOLOGICAL Hx Falls: No - GASTROINTESTINAL Hx Gastrointestinal Disorders: No - GENITOURINARY/GYNECOLOGICAL Hx Genitourinary Disorders: Yes Hx Hematuria: Yes - PSYCHIATRIC Hx Psychophysiologic Disorder: No - SURGICAL HISTORY Hx Musculoskeletal Surgery: Yes (LEFT SHOULDER) Other/Comment: HX:SURGERY FOR KIDNEY STONES - ANESTHESIA Hx Anesthesia: Yes Hx Anesthesia Reactions: No Hx Malignant Hyperthermia: No Meds Allergies/Adverse Reactions: Allergies Allergy/AdvReac Type Severity Reaction Status Date / Time No Known Allergies Allergy Verified 04/01/18 15:48 - Medications Medications: Current Medications Amitriptyline HCl (Elavil) 20 mg PO DAILY [facility] Last Admin: 04/02/18 09:43 Dose: Not Given Divalproex Sodium (Depakote Sprinkles) 125 mg PO HS [facility] Last Admin: 04/02/18 09:42 Dose: Not Given Ceftriaxone Sodium (Rocephin 1 Gram Ivpb) 1 gm in 100 mls @ 100 mls/hr IVPB DAILY [facility]; Protocol Last Admin: 04/02/18 10:25 Dose: 100 mls/hr Metronidazole (Flagyl) 500 mg in 100 mls @ 100 mls/hr IVPB Q8 [facility]; Protocol Last Admin: 04/02/18 05:18 Dose: 100 mls/hr Pantoprazole Sodium (Protonix 40mg Ivpb) 40 mg in 100 mls @ 20 mls/hr IVPB .Q5H [facility] Last Admin: 04/02/18 10:25 Dose: 20 mls/hr Sodium Chloride (Sodium Chloride 0.9%) 100 mls @ 125 mls/hr IV .Q48M [facility] Dextrose/Sodium Chloride (Dextrose 5%/0.9% Ns 1000 Ml) 1,000 mls @ 100 mls/hr IV .Q10H [facility] Last Admin: 04/02/18 08:36 Dose: 100 mls/hr Insulin Human Regular (Humulin R Low) 0 units SC ACHS [facility]; Protocol Last Admin: 04/02/18 12:29 Dose: Not Given Loratadine (Claritin) 10 mg PO DAILY [facility] Last Admin: 04/02/18 09:42 Dose: Not Given Magnesium Oxide (Mag-Ox) 400 mg PO BID [facility] Last Admin: 04/02/18 09:43 Dose: Not Given Non-Formulary Medication (Fluticasone/Salmeterol [Airduo Respiclick 113-14 Mcg]) 1 puff IH BID [facility] Ondansetron HCl (Zofran Inj) 4 mg IVP Q6 PRN PRN Reason: Nausea/Vomiting Physical Exam - Constitutional Appears: Well, Non-toxic - Head Exam Head Exam: ATRAUMATIC, NORMOCEPHALIC - Eye Exam Eye Exam: EOMI - ENT Exam ENT Exam: Mucous Membranes Moist - Respiratory Exam Respiratory Exam: NORMAL BREATHING PATTERN - Cardiovascular Exam Cardiovascular Exam: REGULAR RHYTHM - GI/Abdominal Exam GI & Abdominal Exam: Guarding, Soft, Tenderness (epigastric). absent: Distended - Extremities Exam Extremities exam: Positive for: pedal pulses present. Negative for: calf tenderness, pedal edema - Neurological Exam Neurological exam: Alert, Oriented x3 - Psychiatric Exam Psychiatric exam: Normal Affect, Normal Mood - Skin Skin Exam: Dry, Intact, Normal Color Results - Vital Signs Recent Vital Signs: Last Vital Signs Temp 97.9 F 04/02/18 15:45 Pulse 67 04/02/18 15:45 Resp 18 04/02/18 15:45 BP 118/68 04/02/18 15:45 Pulse Ox 99 04/02/18 15:45 - Labs Result Diagrams: 04/02/18 08:00 04/02/18 08:15 Labs: Laboratory Results - last 24 hr 04/01/18 04/01/18 04/01/18 16:10 17:10 17:10 WBC 13.0 H RBC 2.17 L Hgb 6.6 L* D Hct 19.8 L* MCV 91.2 MCH 30.4 MCHC 33.3 RDW 14.2 Plt Count 185 MPV 9.5 Gran % 75.1 H Lymph % (Auto) 19.5 L [place] % (Auto) 4.2 Eos % (Auto) 1.0 L Baso % (Auto) 0.2 Gran # 9.72 H Lymph # (Auto) 2.5 [place] # (Auto) 0.6 Eos # (Auto) 0.1 Baso # (Auto) 0.03 PT INR APTT pO2 150 H VBG pH 7.35 VBG pCO2 37.0 L VBG HCO3 20.4 L VBG Total CO2 21.5 L VBG O2 Sat (Calc) 97.8 H VBG Base Excess -4.7 L VBG Potassium 4.4 Sodium 134.0 Chloride 105.0 Glucose 238 H Lactate 4.1 H* FiO2 21.0 Potassium Carbon Dioxide Anion Gap BUN Creatinine Est GFR ( Amer) Est GFR (Non-Af Amer) POC Glucose (mg/dL) 194 H Random Glucose Calcium Phosphorus Magnesium Iron TIBC % Saturation Total Bilirubin AST ALT Alkaline Phosphatase Lactate Dehydrogenase Total Creatine Kinase Troponin I Total Protein Albumin Globulin Albumin/Globulin Ratio Triglycerides Cholesterol LDL Cholesterol Direct HDL Cholesterol Lipase Vitamin B12 Folate TSH 3rd Generation Venous Blood Potassium 4.4 Urine Color Urine Appearance Urine pH Ur Specific Butler Urine Protein Urine Glucose (UA) Urine Ketones Urine Blood Urine Nitrate Urine Bilirubin Urine Urobilinogen Ur Leukocyte Esterase Urine RBC Urine WBC Ur Epithelial Cells Urine Bacteria Blood Type Antibody Screen Crossmatch BBK History Checked 04/01/18 04/01/18 04/01/18 17:10 18:42 18:42 WBC RBC Hgb Hct MCV MCH MCHC RDW Plt Count MPV Gran % Lymph % (Auto) [place] % (Auto) Eos % (Auto) Baso % (Auto) Gran # Lymph # (Auto) [place] # (Auto) Eos # (Auto) Baso # (Auto) PT INR APTT pO2 VBG pH VBG pCO2 VBG HCO3 VBG Total CO2 VBG O2 Sat (Calc) VBG Base Excess VBG Potassium Sodium 133 Chloride 104 Glucose Lactate FiO2 Potassium 4.4 Carbon Dioxide 20 L Anion Gap 13 BUN 40 H Creatinine 1.0 Est GFR ( Amer) > 60 Est GFR (Non-Af Amer) > 60 POC Glucose (mg/dL) Random Glucose 219 H Calcium 8.5 Phosphorus 2.8 Magnesium 1.6 L Iron TIBC % Saturation Total Bilirubin 0.2 AST 19 ALT 26 Alkaline Phosphatase 61 Lactate Dehydrogenase Total Creatine Kinase Troponin I 0.02 Total Protein 5.6 L Albumin 3.3 Globulin 2.3 Albumin/Globulin Ratio 1.4 Triglycerides Cholesterol LDL Cholesterol Direct HDL Cholesterol Lipase 317 H Vitamin B12 Folate TSH 3rd Generation Venous Blood Potassium Urine Color Light yellow Urine Appearance Clear Urine pH 6.0 Ur Specific [place] 1.020 Urine Protein Negative Urine Glucose (UA) 250 H Urine Ketones Trace H Urine Blood Negative Urine Nitrate Negative Urine Bilirubin Negative Urine Urobilinogen 0.2 Ur Leukocyte Esterase Small H Urine RBC 0 - 2 Urine WBC 1 - 3 Ur Epithelial Cells None Urine Bacteria Mod Blood Type O POSITIVE Antibody Screen Negative Crossmatch See Detail BBK History Checked Patient has bt 04/01/18 04/02/18 04/02/18 20:30 07:26 08:00 WBC 9.5 D RBC 2.72 L Hgb 8.4 L Hct 24.6 L MCV 90.4 MCH 30.9 MCHC 34.1 RDW 14.4 Plt Count 155 MPV 9.6 Gran % Lymph % (Auto) [place] % (Auto) Eos % (Auto) Baso % (Auto) Gran # Lymph # (Auto) [place] # (Auto) Eos # (Auto) Baso # (Auto) PT INR APTT pO2 206 H VBG pH 7.34 VBG pCO2 41.0 VBG HCO3 22.1 VBG Total CO2 23.4 VBG O2 Sat (Calc) 98.6 H VBG Base Excess -3.5 L VBG Potassium 4.1 Sodium 137.0 Chloride 108.0 H Glucose 154 H Lactate 1.9 FiO2 21.0 Potassium Carbon Dioxide Anion Gap BUN Creatinine Est GFR ( Amer) Est GFR (Non-Af Amer) POC Glucose (mg/dL) 79 Random Glucose Calcium Phosphorus Magnesium Iron TIBC % Saturation Total Bilirubin AST ALT Alkaline Phosphatase Lactate Dehydrogenase Total Creatine Kinase Troponin I Total Protein Albumin Globulin Albumin/Globulin Ratio Triglycerides Cholesterol LDL Cholesterol Direct HDL Cholesterol Lipase Vitamin B12 Folate TSH 3rd Generation Venous Blood Potassium 4.1 Urine Color Urine Appearance Urine pH Ur Specific [place] Urine Protein Urine Glucose (UA) Urine Ketones Urine Blood Urine Nitrate Urine Bilirubin Urine Urobilinogen Ur Leukocyte Esterase Urine RBC Urine WBC Ur Epithelial Cells Urine Bacteria Blood Type Antibody Screen Crossmatch BBK History Checked 04/02/18 04/02/18 04/02/18 08:15 08:15 08:15 WBC RBC Hgb Hct MCV MCH MCHC RDW Plt Count MPV Gran % Lymph % (Auto) [place] % (Auto) Eos % (Auto) Baso % (Auto) Gran # Lymph # (Auto) [place] # (Auto) Eos # (Auto) Baso # (Auto) PT INR APTT pO2 VBG pH VBG pCO2 VBG HCO3 VBG Total CO2 VBG O2 Sat (Calc) VBG Base Excess VBG Potassium Sodium 137 Chloride 108 H Glucose Lactate FiO2 Potassium 4.0 Carbon Dioxide 26 Anion Gap 7 L BUN 21 Creatinine 0.8 Est GFR ( Amer) > 60 Est GFR (Non-Af Amer) > 60 POC Glucose (mg/dL) Random Glucose 90 Calcium 8.0 L Phosphorus Magnesium Iron 75 TIBC 294 % Saturation 25 Total Bilirubin AST ALT Alkaline Phosphatase Lactate Dehydrogenase 286 L Total Creatine Kinase 67 Troponin I < 0.01 D Total Protein Albumin Globulin Albumin/Globulin Ratio Triglycerides 185 H Cholesterol 110 L LDL Cholesterol Direct 70 HDL Cholesterol 29 Lipase Vitamin B12 287 Folate 14.1 TSH 3rd Generation 5.16 H Venous Blood Potassium Urine Color Urine Appearance Urine pH Ur Specific [place] Urine Protein Urine Glucose (UA) Urine Ketones Urine Blood Urine Nitrate Urine Bilirubin Urine Urobilinogen Ur Leukocyte Esterase Urine RBC Urine WBC Ur Epithelial Cells Urine Bacteria Blood Type Antibody Screen Crossmatch BBK History Checked 04/02/18 04/02/18 08:30 11:48 WBC RBC Hgb Hct MCV MCH MCHC RDW Plt Count MPV Gran % Lymph % (Auto) [place] % (Auto) Eos % (Auto) Baso % (Auto) Gran # Lymph # (Auto) [place] # (Auto) Eos # (Auto) Baso # (Auto) PT 12.1 INR 1.05 APTT 27.6 pO2 VBG pH VBG pCO2 VBG HCO3 VBG Total CO2 VBG O2 Sat (Calc) VBG Base Excess VBG Potassium Sodium Chloride Glucose Lactate FiO2 Potassium Carbon Dioxide Anion Gap BUN Creatinine Est GFR ( Amer) Est GFR (Non-Af Amer) POC Glucose (mg/dL) 136 H Random Glucose Calcium Phosphorus Magnesium Iron TIBC % Saturation Total Bilirubin AST ALT Alkaline Phosphatase Lactate Dehydrogenase Total Creatine Kinase Troponin I Total Protein Albumin Globulin Albumin/Globulin Ratio Triglycerides Cholesterol LDL Cholesterol Direct HDL Cholesterol Lipase Vitamin B12 Folate TSH 3rd Generation Venous Blood Potassium Urine Color Urine Appearance Urine pH Ur Specific [place] Urine Protein Urine Glucose (UA) Urine Ketones Urine Blood Urine Nitrate Urine Bilirubin Urine Urobilinogen Ur Leukocyte Esterase Urine RBC Urine WBC Ur Epithelial Cells Urine Bacteria Blood Type Antibody Screen Crossmatch BBK History Checked Assessment & Plan - Assessment and Plan (Free Text) Assessment: 62 yr old male with upper GI bleed, currently controlled with endoscopic injection and cautery Plan: keep NPO c/w Protonix as per GI recs Maintain hemodynamic stability CBC Q6hrs until hgb stable transfuse PRN for hgb <7 monitor BM for blood monitor for N/V discussed with Dr. Marcin Acevedo, PGY 1 - Date & Time Date: 04/02/18 Time: 15:35
--- NOTE | 2018-04-02 20:17 | CP.PCM.PN ---
Subjective - Date & Time of Evaluation Date of Evaluation: 04/02/18 Time of Evaluation: 16:15 - Subjective Subjective: Patient is comfortable and seen in PACU. Objective - Vital Signs/Intake and Output Vital Signs (last 24 hours): Temp Pulse Resp BP Pulse Ox 99.2 F 70 20 113/65 97 04/02/18 20:06 04/02/18 20:06 04/02/18 20:06 04/02/18 20:06 04/02/18 18:00 Intake and Output: 04/02/18 04/03/18 18:59 06:59 Intake Total 0 0 Balance 0 0 - Medications Medications: Current Medications Amitriptyline HCl (Elavil) 20 mg PO DAILY [facility] Last Admin: 04/02/18 09:43 Dose: Not Given Divalproex Sodium (Depakote Sprinkles) 125 mg PO HS [facility] Last Admin: 04/02/18 09:42 Dose: Not Given Ceftriaxone Sodium (Rocephin 1 Gram Ivpb) 1 gm in 100 mls @ 100 mls/hr IVPB DAILY [facility]; Protocol Last Admin: 04/02/18 10:25 Dose: 100 mls/hr Metronidazole (Flagyl) 500 mg in 100 mls @ 100 mls/hr IVPB Q8 [facility]; Protocol Last Admin: 04/02/18 16:00 Dose: 100 mls/hr Pantoprazole Sodium (Protonix 40mg Ivpb) 40 mg in 100 mls @ 20 mls/hr IVPB .Q5H [facility] Last Admin: 04/02/18 17:25 Dose: 20 mls/hr Sodium Chloride (Sodium Chloride 0.9%) 100 mls @ 125 mls/hr IV .Q48M [facility] Dextrose/Sodium Chloride (Dextrose 5%/0.9% Ns 1000 Ml) 1,000 mls @ 100 mls/hr IV .Q10H [facility] Last Admin: 04/02/18 17:24 Dose: 100 mls/hr Insulin Human Regular (Humulin R Low) 0 units SC ACHS [facility]; Protocol Last Admin: 04/02/18 17:13 Dose: Not Given Loratadine (Claritin) 10 mg PO DAILY [facility] Last Admin: 04/02/18 09:42 Dose: Not Given Magnesium Oxide (Mag-Ox) 400 mg PO BID [facility] Last Admin: 04/02/18 09:43 Dose: Not Given Non-Formulary Medication (Fluticasone/Salmeterol [Airduo Respiclick 113-14 Mcg]) 1 puff IH BID [facility] Ondansetron HCl (Zofran Inj) 4 mg IVP Q6 PRN PRN Reason: Nausea/Vomiting - Labs Labs: 04/02/18 08:00 04/02/18 08:15 PT 12.1 SECONDS (9.4-12.5) 04/02/18 08:30 INR 1.05 04/02/18 08:30 APTT 27.6 Seconds (25.1-36.5) 04/02/18 08:30 - GI/Abdominal Exam GI & Abdominal Exam: Soft. absent: Tenderness Assessment and Plan - Assessment and Plan (Free Text) Assessment: S/p EGD, large duodenal ulcer with visible vessel, active bleeding was noted in the bulb. Complete hemostasis was obtained with BICAP treatment of visible bleeding vessel. S/p injection of 1 in 10,000 Epi used. Discussed patient transfer to ICU for close monitoring. Close followup of the hemoglobin. Continue Protonix drip. Discussed with the mold preparer and PCP.
[2018-04-02 23:44] LABS: BASO # 0.02 K/mm3 (0.0-2.0); BASO % 0.3 % (0.0-3.0); EOS # 0.1 (0.0-0.7); EOS % 1.3 % (1.5-5.0); GRAN # 5.46 (1.4-6.5); GRAN % 68.6 % (50.0-68.0); HEMOGLOBIN 10.3 g/dL (14.0-18.0); LYMPH % 24.6 % (22.0-35.0); MEAN CELL VOLUME 90.3 fl (80.0-105.0); MEAN CORPUSCULAR HEMOGLOBIN 30.3 pg (25.0-35.0); MEAN CORPUSCULAR HGB CONC 33.6 g/dl (31.0-37.0); MEAN PLATELET VOLUME 9.6 fl (7.0-11.0); MONO # 0.4 (0.1-0.6); MONO % 5.2 % (1.0-6.0); RBC 3.4 10^6/uL (3.5-6.1); RED CELL DISTRIBUTION WIDTH 14.5 % (11.5-14.5); WHITE BLOOD COUNT 7.9 10^3/uL (4.5-11.0)
--- NOTE | 2018-04-03 02:27 | CON ---
DATE: 04/02/2018 MEDICAL HISTORIAN CONSULT LOCATION: [facility]. REQUESTING PHYSICIAN: Elina Cole MD CHIEF COMPLAINT AND HISTORY OF PRESENT ILLNESS: The patient initially was admitted for palpitations and abdominal pain with bloating, black stools, and lightheadedness. Now, the patient was noted to have a bleeding ulcer and was taken to endoscopy today, where Dr. Corrales did the procedures that were necessary to stop the bleeding. Postprocedure, the patient is hemodynamically stable and came to the intensive care unit and is admitted here at this time. He is awake and alert. Family at bedside. The patient speaks only [place]i, but the patient's son translated. He has mild epigastric discomfort, but no nauseousness or vomiting. No diarrhea. No chest pain, shortness of breath, cough, wheezing, chest congestion. The patient is comfortable, talking with family. Hemodynamically stable. PAST MEDICAL HISTORY: Significant for diabetes, hypertension, asthma. Note that in the endoscopy, he was diagnosed with a bleeding duodenal ulcer. ALLERGIES: THE PATIENT HAS NO KNOWN ALLERGIES. CURRENT MEDICATIONS: Can be evaluated as per the nurse's intake form. SOCIAL HISTORY: No history of smoking or EtOH abuse or drug abuse. FAMILY HISTORY: Noncontributory. REVIEW OF SYSTEMS: CONSTITUTIONAL: All negative. HEENT: All negative. CARDIOVASCULAR: All negative. RESPIRATORY: All negative. GASTROINTESTINAL: The patient has the duodenal ulcer, which initially was bleeding. GENITOURINARY: Noncontributory. NEUROPSYCHIATRIC: Noncontributory. HEMATOLOGIC: The patient does have anemia. IMMUNOLOGIC: All negative. INTEGRITY: All negative. PSYCHIATRIC: All negative. PHYSICAL EXAMINATION: VITAL SIGNS: Note that his temperature is 98.6, pulse is 68, respirations are 19, and BP is 108/60. SKIN: Warm and dry. HEENT: Head: Atraumatic, normocephalic. Eyes: Reactive to light. Ears, nose, and throat seemed to be within normal limits. NECK: Supple. No JVD. No thyroid enlargement. No lymph nodes. HEART: Has regular rate and rhythm. Normal S1 and S2. LUNGS: Reveal good breath sounds bilaterally. ABDOMEN: Soft, slightly tender to palpation in the epigastric region. GENITALIA AND RECTAL: Deferred. MUSCULOSKELETAL: No joint deformities. EXTREMITIES: Reveal no significant edema. NEUROLOGICAL: He seemed to be grossly intact. LABORATORY DATA: As far as his laboratories are concerned his white count is 9.5, hemoglobin is 8.4, hematocrit 24.6 with platelets of 155,000. His PT is 12.1, INR is 1.05, PTT is 27.6. Patient's sodium is 137, potassium 4.0, chloride 108, CO2 of 26 with a BUN of 21, creatinine of 0.8, and glucose of 136. IMPRESSION: As far as my impression is concerned, this patient has presented with bleeding duodenal ulcer. Note that the patient has been taking nonsteroidal anti-inflammatory drugs and that may have been the etiology. The patient also has a history of diabetes as well as hypertension and asthma. It is noted that he has anemia as well. PLAN: As far as our plan, the patient is getting IV fluids 5 to 10 normal saline. He is on his Elavil. He is on metronidazole as well as his Adderall. The patient is getting Protonix IV. He is on Rocephin IV and has been admitted to the intensive care unit for closer monitoring overnight. We will follow his hemoglobin and correct labs as needed. Dario Barbosa MD
[2018-04-03] MEDS: Pantoprazole 40mg/100mL NS 40 MG/100 ML BAG IVPB SCH ×4 (03:00→20:00)
[2018-04-03] MEDS: Dextrose 5%/0.9% NS 1,000 ML IV SCH ×2 (05:00→17:57)
[2018-04-03] MEDS: metroNIDAZOLE IV 500 mg/100 ml 500 MG/100 ML BAG IVPB SCH ×3 (05:30→22:10)
[2018-04-03 05:35] LABS: BASO # 0.03 K/mm3 (0.0-2.0); BASO % 0.4 % (0.0-3.0); EOS # 0.2 (0.0-0.7); EOS % 1.9 % (1.5-5.0); GRAN # 5.14 (1.4-6.5); GRAN % 66.2 % (50.0-68.0); HEMOGLOBIN 10.6 g/dL (14.0-18.0); LYMPH # 1.9 (1.2-3.4); LYMPH % 24.8 % (22.0-35.0); MEAN CELL VOLUME 90.9 fl (80.0-105.0); MEAN PLATELET VOLUME 9.6 fl (7.0-11.0); MONO # 0.5 (0.1-0.6); MONO % 6.7 % (1.0-6.0); RBC 3.53 10^6/uL (3.5-6.1); RED CELL DISTRIBUTION WIDTH 14.6 % (11.5-14.5); WHITE BLOOD COUNT 7.8 10^3/uL (4.5-11.0)
[2018-04-03 05:43] LABS: INR 1.08; PROTHROMBIN TIME 12.4 SECONDS (9.4-12.5)
[2018-04-03] MEDS: Insulin Reg-LOW-Coverage SC SCH ×4 (08:00→22:07)
--- NOTE | 2018-04-03 08:33 | CP.PCM.PN ---
Subjective - Date & Time of Evaluation Date of Evaluation: 04/03/18 Time of Evaluation: 07:05 - Subjective Subjective: Patient seen and examined. Reports he feels better, abdominal pain has improved. Denies fever/chills, nausea/vomiting. Denies hematochezia. Objective - Vital Signs/Intake and Output Vital Signs (last 24 hours): Temp Pulse Resp BP Pulse Ox 98.6 F 61 15 104/57 L 96 04/03/18 02:45 04/03/18 04:50 04/03/18 04:50 04/03/18 04:00 04/03/18 04:50 Intake and Output: 04/03/18 04/03/18 06:59 18:59 Intake Total 325 Balance 325 - Medications Medications: Current Medications Amitriptyline HCl (Elavil) 20 mg PO DAILY [facility] Last Admin: 04/02/18 09:43 Dose: Not Given Divalproex Sodium (Depakote Sprinkles) 125 mg PO HS [facility] Last Admin: 04/02/18 22:07 Dose: Not Given Ceftriaxone Sodium (Rocephin 1 Gram Ivpb) 1 gm in 100 mls @ 100 mls/hr IVPB DAILY [facility]; Protocol Last Admin: 04/02/18 10:25 Dose: 100 mls/hr Metronidazole (Flagyl) 500 mg in 100 mls @ 100 mls/hr IVPB Q8 [facility]; Protocol Last Admin: 04/03/18 05:30 Dose: 100 mls/hr Pantoprazole Sodium (Protonix 40mg Ivpb) 40 mg in 100 mls @ 20 mls/hr IVPB .Q5H [facility] Last Admin: 04/03/18 03:00 Dose: 20 mls/hr Sodium Chloride (Sodium Chloride 0.9%) 100 mls @ 125 mls/hr IV .Q48M [facility] Dextrose/Sodium Chloride (Dextrose 5%/0.9% Ns 1000 Ml) 1,000 mls @ 100 mls/hr IV .Q10H [facility] Last Admin: 04/03/18 05:00 Dose: 100 mls/hr Insulin Human Regular (Humulin R Low) 0 units SC ACHS [facility]; Protocol Last Admin: 04/02/18 22:41 Dose: Not Given Loratadine (Claritin) 10 mg PO DAILY [facility] Last Admin: 04/02/18 09:42 Dose: Not Given Magnesium Oxide (Mag-Ox) 400 mg PO BID [facility] Last Admin: 04/02/18 09:43 Dose: Not Given Non-Formulary Medication (Fluticasone/Salmeterol [Airduo Respiclick 113-14 Mcg]) 1 puff IH BID [facility] Ondansetron HCl (Zofran Inj) 4 mg IVP Q6 PRN PRN Reason: Nausea/Vomiting - Labs Labs: 04/03/18 05:00 04/02/18 08:15 PT 12.4 SECONDS (9.4-12.5) 04/03/18 05:00 INR 1.08 04/03/18 05:00 APTT 27.6 Seconds (25.1-36.5) 04/02/18 08:30 - Constitutional Appears: No Acute Distress - Head Exam Head Exam: NORMOCEPHALIC - Eye Exam Eye Exam: EOMI, Normal appearance - Respiratory Exam Respiratory Exam: NORMAL BREATHING PATTERN - Cardiovascular Exam Cardiovascular Exam: +S1, +S2 - GI/Abdominal Exam GI & Abdominal Exam: Soft. absent: Distended, Firm, Guarding, Rigid, Tenderness, Rebound - Neurological Exam Neurological Exam: Alert, Awake, Oriented x3 - Skin Skin Exam: Dry, Intact, Warm Assessment and Plan - Assessment and Plan (Free Text) Assessment: 62 yr old male with bleeding duodenal ulcer, controlled with endoscopic injection and cautery Plan: Diet advancement as per GI C/w protonix Monitor vitals Hgb 10.6, stable monitor BM Encourage pt OOB discussed with Dr. Marcin Hylton PGY3
[2018-04-03] MEDS ORDERED: Sodium Chloride 0.9% 1,000 ML IV SCH (09:29)
[2018-04-03] MEDS: Magnesium Oxide 400 mg Tab UD PO SCH ×2 (10:10→17:04)
[2018-04-03] MEDS: cefTRIAXone 1 gm 1 GM/100 ML BAG IVPB SCH (10:10)
[2018-04-03 12:51] LABS: BASO # 0.03 K/mm3 (0.0-2.0); BASO % 0.4 % (0.0-3.0); EOS # 0.1 (0.0-0.7); EOS % 1.7 % (1.5-5.0); GRAN # 5.88 (1.4-6.5); GRAN % 72.4 % (50.0-68.0); LYMPH # 1.6 (1.2-3.4); LYMPH % 20.2 % (22.0-35.0); MEAN CELL VOLUME 91.2 fl (80.0-105.0); MEAN CORPUSCULAR HEMOGLOBIN 30.4 pg (25.0-35.0); MEAN CORPUSCULAR HGB CONC 33.3 g/dl (31.0-37.0); MEAN PLATELET VOLUME 9.5 fl (7.0-11.0); MONO # 0.4 (0.1-0.6); MONO % 5.3 % (1.0-6.0); RBC 3.62 10^6/uL (3.5-6.1); RED CELL DISTRIBUTION WIDTH 14.6 % (11.5-14.5); WHITE BLOOD COUNT 8.1 10^3/uL (4.5-11.0)
--- NOTE | 2018-04-03 13:06 | PN ---
DATE: 04/03/2018 SUBJECTIVE: The patient is resting in bed, awake and alert. No complaints of severe abdominal pain. No chest pain. No shortness of breath, cough, wheezing, chest congestion. No fever, chills or nausea or vomiting. The patient had a stable night. PHYSICAL EXAMINATION: VITAL SIGNS: Note that temperature is 98.6, pulse is 76, respirations of 15 and BP is 104/57. SKIN: Warm and dry. HEENT: Head: Atraumatic, normocephalic. Eyes: Reactive to light. Ears, nose, and throat seemed to be within normal limits. NECK: His neck is supple. No JVD. No thyroid enlargement. No lymph nodes. HEART: Has regular rate and rhythm. Normal S1, S2. LUNGS: Reveal good breath sounds bilaterally. ABDOMEN: Soft, nontender. Decreased bowel sounds. GENITALIA AND RECTAL: Deferred. MUSCULOSKELETAL: No joint deformities. EXTREMITIES: Reveal trace lower extremity edema. NEUROLOGICAL: Neurologically, he seemed to be grossly intact. LABORATORY DATA: As far as his laboratories are concerned, his white count is 7.8, hemoglobin is 10.6, hematocrit 32.1 with platelets of 148,000. Sodium is 137, potassium 4, chloride 108, CO2 of 26 with a BUN of 21, creatinine of 0.8 and a glucose of 109. IMPRESSION: The patient has been diagnosed with a bleeding duodenal ulcer and has a history of diabetes, hypertension, asthma and anemia. PLAN As far as our plan, we will continue to observe closely. The patient is on IV Protonix. We will continue with his Elavil and Adderall. The patient will continue also with as Rocephin IV. We will follow closely and treat aggressively along with the other consultants and the primary care doctor. Dario Barbosa MD
[2018-04-03] MEDS: FLUTICASONE SALMETEROL IH SCH ×2 (13:35→22:00)
--- NOTE | 2018-04-03 14:09 | CP.PCM.PN ---
<Emily Nichole - Last Filed: 04/03/18 14:05> Subjective - Date & Time of Evaluation Date of Evaluation: 04/03/18 Time of Evaluation: 08:00 - Subjective Subjective: GI Fellow PGY5 Progress Note Pt seen and evaluated at bedside, doing well with no abdominal pain, no rectal bleeding. VSS. NPO. ROS: A 12pt ROS was negative except as above. Objective - Vital Signs/Intake and Output Vital Signs (last 24 hours): Temp Pulse Resp BP Pulse Ox 98.4 F 69 17 116/68 98 04/03/18 08:00 04/03/18 09:20 04/03/18 09:20 04/03/18 09:00 04/03/18 09:20 Intake and Output: 04/03/18 04/03/18 06:59 18:59 Intake Total 1670 Balance 1670 - Medications Medications: Current Medications Amitriptyline HCl (Elavil) 20 mg PO DAILY [facility] Last Admin: 04/03/18 10:23 Dose: 20 mg Divalproex Sodium (Depakote Sprinkles) 125 mg PO HS [facility] Last Admin: 04/02/18 22:07 Dose: Not Given Home Med (Home Med) 1 unit IH Q12 [facility] Last Admin: 04/03/18 13:35 Dose: 1 unit Ceftriaxone Sodium (Rocephin 1 Gram Ivpb) 1 gm in 100 mls @ 100 mls/hr IVPB DAILY [facility]; Protocol Last Admin: 04/03/18 10:10 Dose: 100 mls/hr Metronidazole (Flagyl) 500 mg in 100 mls @ 100 mls/hr IVPB Q8 [facility]; Protocol Last Admin: 04/03/18 13:37 Dose: 100 mls/hr Pantoprazole Sodium (Protonix 40mg Ivpb) 40 mg in 100 mls @ 20 mls/hr IVPB .Q5H [facility] Last Admin: 04/03/18 10:11 Dose: 20 mls/hr Dextrose/Sodium Chloride (Dextrose 5%/0.9% Ns 1000 Ml) 1,000 mls @ 100 mls/hr IV .Q10H [facility] Last Admin: 04/03/18 05:00 Dose: 100 mls/hr Insulin Human Regular (Humulin R Low) 0 units SC ACHS [facility]; Protocol Last Admin: 04/03/18 13:34 Dose: Not Given Loratadine (Claritin) 10 mg PO DAILY [facility] Last Admin: 04/03/18 10:10 Dose: 10 mg Magnesium Oxide (Mag-Ox) 400 mg PO BID [facility] Last Admin: 04/03/18 10:10 Dose: 400 mg Ondansetron HCl (Zofran Inj) 4 mg IVP Q6 PRN PRN Reason: Nausea/Vomiting - Labs Labs: 04/03/18 12:30 04/02/18 08:15 PT 12.4 SECONDS (9.4-12.5) 04/03/18 05:00 INR 1.08 04/03/18 05:00 APTT 27.6 Seconds (25.1-36.5) 04/02/18 08:30 - Constitutional Appears: Non-toxic, No Acute Distress - Head Exam Head Exam: ATRAUMATIC, NORMAL INSPECTION, NORMOCEPHALIC - Eye Exam Eye Exam: EOMI, Normal appearance, PERRL - ENT Exam ENT Exam: Mucous Membranes Moist - Neck Exam Neck Exam: Full ROM, Normal Inspection - Respiratory Exam Respiratory Exam: Clear to Ausculation Bilateral, NORMAL BREATHING PATTERN - Cardiovascular Exam Cardiovascular Exam: REGULAR RHYTHM, RRR, +S1 - GI/Abdominal Exam GI & Abdominal Exam: Soft, Normal Bowel Sounds. absent: Distended, Guarding - Extremities Exam Extremities Exam: Full ROM, Normal Inspection - Neurological Exam Neurological Exam: Alert, Awake, Oriented x3 - Psychiatric Exam Psychiatric exam: Normal Affect, Normal Mood - Skin Skin Exam: Dry, Intact, Normal Color, Warm Assessment and Plan - Assessment and Plan (Free Text) Assessment: 1. Acute Anemia 2. UGIB, melena 3. PUD-duodenal ulcer with vissible vessel, gastric ulcers 4. Hx of HTN, HLD, DM -Continue supportive care -IVFs D5NS@100cc/hr -NPO, monitor closely for any rectal bleeding -No active GI bleeding at this time, Hgb stable after 4U PRBCs -Monitor H/H and transfuse goal >7 -Continue PPI drip -Monitor closely <Татьяна,Kovil V - Last Filed: 04/03/18 22:40> Objective - Vital Signs/Intake and Output Vital Signs (last 24 hours): Temp Pulse Resp BP Pulse Ox 98.6 F 75 18 118/61 96 04/03/18 19:56 04/03/18 21:00 04/03/18 21:00 04/03/18 21:00 04/03/18 21:00 Intake and Output: 04/03/18 04/04/18 18:59 06:59 Intake Total 1590 Output Total 0 Balance 1590 - Medications Medications: Current Medications Amitriptyline HCl (Elavil) 20 mg PO DAILY [facility] Last Admin: 04/03/18 10:23 Dose: 20 mg Divalproex Sodium (Depakote Sprinkles) 125 mg PO HS [facility] Last Admin: 04/03/18 22:07 Dose: Not Given Home Med (Home Med) 1 unit IH Q12 [facility] Last Admin: 04/03/18 13:35 Dose: 1 unit Ceftriaxone Sodium (Rocephin 1 Gram Ivpb) 1 gm in 100 mls @ 100 mls/hr IVPB DAILY [facility]; Protocol Last Admin: 04/03/18 10:10 Dose: 100 mls/hr Metronidazole (Flagyl) 500 mg in 100 mls @ 100 mls/hr IVPB Q8 [facility]; Protocol Last Admin: 04/03/18 22:10 Dose: 100 mls/hr Pantoprazole Sodium (Protonix 40mg Ivpb) 40 mg in 100 mls @ 20 mls/hr IVPB .Q5H [facility] Last Admin: 04/03/18 20:00 Dose: 20 mls/hr Dextrose/Sodium Chloride (Dextrose 5%/0.9% Ns 1000 Ml) 1,000 mls @ 100 mls/hr IV .Q10H [facility] Last Admin: 04/03/18 17:57 Dose: 100 mls/hr Insulin Human Regular (Humulin R Low) 0 units SC ACHS [facility]; Protocol Last Admin: 04/03/18 22:07 Dose: Not Given Loratadine (Claritin) 10 mg PO DAILY [facility] Last Admin: 04/03/18 10:10 Dose: 10 mg Magnesium Oxide (Mag-Ox) 400 mg PO BID [facility] Last Admin: 04/03/18 17:04 Dose: 400 mg Ondansetron HCl (Zofran Inj) 4 mg IVP Q6 PRN PRN Reason: Nausea/Vomiting - Labs Labs: 04/03/18 16:07 04/02/18 08:15 PT 12.4 SECONDS (9.4-12.5) 04/03/18 05:00 INR 1.08 04/03/18 05:00 APTT 27.6 Seconds (25.1-36.5) 04/02/18 08:30 Attending/Attestation - Attestation I have personally seen and examined this patient.: Yes I have fully participated in the care of the patient.: Yes I have reviewed all pertinent clinical information, including history, physical exam and plan: Yes Notes (Text): This is an addendum to GI progress report dictated by the GI Fellow. The patient was seen and examined earlier. Medical records, lab studies, imagings were reviewed. Last 24 hours events reviewed. Agreed with the above treatment plan as outlined in GI Fellow 's notes with the addition of the following No further episodes of melena per rectum No complaints of abdominal pain On exam abdomen was soft and nontender Continue Protonix drip Follow-up hemoglobin Clear liquid diet in the a.m. This patient would need a repeat endoscopy based on the clinical course 04/03/18 22:38
[2018-04-03 16:11] LABS: BASO # 0.02 K/mm3 (0.0-2.0); BASO % 0.3 % (0.0-3.0); EOS # 0.2 (0.0-0.7); EOS % 2.2 % (1.5-5.0); GRAN # 4.72 (1.4-6.5); GRAN % 69.3 % (50.0-68.0); HEMOGLOBIN 11.4 g/dL (14.0-18.0); LYMPH # 1.6 (1.2-3.4); LYMPH % 23.9 % (22.0-35.0); MEAN CELL VOLUME 91.4 fl (80.0-105.0); MEAN CORPUSCULAR HEMOGLOBIN 30.6 pg (25.0-35.0); MEAN CORPUSCULAR HGB CONC 33.4 g/dl (31.0-37.0); MEAN PLATELET VOLUME 9.6 fl (7.0-11.0); MONO # 0.3 (0.1-0.6); MONO % 4.3 % (1.0-6.0); RBC 3.73 10^6/uL (3.5-6.1); RED CELL DISTRIBUTION WIDTH 14.9 % (11.5-14.5); WHITE BLOOD COUNT 6.8 10^3/uL (4.5-11.0)
[2018-04-03] MEDS: Divalproex 125 mg EC Sprinkle Cap PO SCH (22:07)
--- NOTE | 2018-04-03 23:55 | VAS ---
DATE: 04/03/2018 SUBJECTIVE: The patient is seen in the CCU, status post upper endoscopy through Dr. Vaz yesterday. At that time, they found a 1 cm ulcer with a blood vessel on the . This was treated with injections with epinephrine and the patient received 2 units of blood 2 units, total of 4. PHYSICAL EXAMINATION: VITAL SIGNS: Stable and normal. ABDOMEN: bowel movement. LABORATORY DATA: Hemoglobin was 10.6 has been stable for 8 hours. IMPRESSION AND PLAN: Bleeding duodenal ulcer having received so far 4 units of blood. At this time, no surgery is planned or actually anticipated. Telly Burch MD
[2018-04-04] MEDS: Dextrose 5%/0.9% NS 1,000 ML IV SCH ×2 (01:00→15:56)
[2018-04-04] MEDS: Pantoprazole 40mg/100mL NS 40 MG/100 ML BAG IVPB SCH ×6 (02:00→22:46)
--- NOTE | 2018-04-04 04:31 | PN ---
DATE: 04/03/2018 SUBJECTIVE: The patient was seen at bedside on 04/03/2018. Looking comfortable. No abdominal pain. No nausea or vomiting. No rectal bleeding. The patient is n.p.o. No fever. No chills. No hematuria. No hematochezia.. PHYSICAL EXAMINATION: VITAL SIGNS: Temperature 98.4, pulse 59, respiratory rate 17, blood pressure 115/58, pulse oximetry 98. HEENT: Head normocephalic and atraumatic. Eyes, PERRLA. Extraocular movements are intact. Conjunctivae clear. Nose patent. Mucous membranes moist. NECK: Supple. No carotid bruit. No JVD or thyromegaly. CHEST: Bilaterally symmetrical. HEART: S1 and S2 positive. LUNGS: Clear to auscultation. ABDOMEN: Soft. Bowel sounds present. No organomegaly. EXTREMITIES: No edema. No cyanosis. NEUROLOGIC: The patient is awake and alert. Moving all four extremities. No focal deficits. MEDICATIONS: Elavil, Depakote, Rocephin, Flagyl, insulin, Claritin, magnesium oxide, and Zofran. LABORATORY DATA: White blood cells 8.1, hemoglobin 11, hematocrit 33, and platelets 158. Sodium 137, potassium 4, BUN 21, creatinine 0.8, and glucose 90. ASSESSMENT AND PLAN: Mr. Elías Madden is a 62-year-old male with anemia, hyperchloremia, gastrointestinal bleeding, melena, peptic ulcer disease, duodenal ulcer that has been visible, vascular and gastric ulcer, history of hypertension, hypercholesterolemia, diabetes mellitus, admitted for endoscopy yesterday Dr. Vaz. Continue supportive care, IV , n.p.o. The patient is to notify any rectal bleeding. No active gastrointestinal bleeding at this time. Stable after 4 units of packed red blood cells. Monitor hemoglobin and hematocrit. If hemoglobin drop less than 7, then transfuse. Continue proton pump inhibitor drip. No further episode of melena happened. Gastrointestinal and deep venous thrombosis prophylaxis. Repeat labs. Discussion done with the patient and staff. Elina Cole MD [facility] # [id number]
[2018-04-04] MEDS: metroNIDAZOLE IV 500 mg/100 ml 500 MG/100 ML BAG IVPB SCH (05:18)
--- NOTE | 2018-04-04 07:34 | CP.CCUPN ---
<Cheko Thompson - Last Filed: 04/04/18 15:00> CCU Subjective - Physician Review Subjective (Free Text): Cheko Thompson DO, PGY1. ICU progress note for Adan Patient seen and examined at bedside. He is AAOx3, in NAD. He reports no complaints.No acute events overnight. Patient denied CP, fever, palpitations, N/V/D, headache, dizziness, abd pain, hemoptysis, or blood per rectum CCU Objective - Vital Signs / Intake & Output Vital Signs (Last 4 hours): Vital Signs Temp Pulse Resp BP Pulse Ox 04/04/18 07:00 65 18 103/57 L 97 04/04/18 06:50 77 20 96 04/04/18 06:40 66 15 97 04/04/18 06:30 61 14 96 04/04/18 06:20 61 14 96 04/04/18 06:10 62 14 95 04/04/18 06:00 61 14 106/58 L 96 04/04/18 05:50 63 15 95 04/04/18 05:40 62 14 97 04/04/18 05:30 71 14 96 04/04/18 05:20 63 14 96 04/04/18 05:10 63 14 95 04/04/18 05:00 64 14 103/55 L 95 04/04/18 04:50 65 15 95 04/04/18 04:40 71 19 97 04/04/18 04:30 69 16 96 04/04/18 04:20 63 16 97 04/04/18 04:10 59 L 15 97 04/04/18 04:02 62 15 87/45 L 96 04/04/18 04:00 98.5 F 62 15 88/41 L 96 04/04/18 03:50 61 15 96 04/04/18 03:40 74 17 94 L Intake and Output (Last 8hrs): Intake & Output 04/03/18 04/04/18 04/04/18 22:59 06:59 14:59 Intake Total 1590 Output Total 0 Balance 1590 Weight 170 lb Intake: IV 1440 Left Antecubital 1440 Oral 150 Output: Stool 0 - Physical Exam Head: Positive for: Atraumatic, Normocephalic Pupils: Positive for: PERRL Extroacular Muscles: Positive for: EOMI Conjunctiva: Positive for: Normal (No conjunctiva palor.) Mouth: Positive for: Moist Mucous Membranes Neck: Positive for: Normal Range of Motion Respiratory/Chest: Positive for: Clear to Auscultation, Good Air Exchange. Negative for: Respiratory Distress, Accessory Muscle Use Cardiovascular: Positive for: Normal S1, S2, Tachycardic. Negative for: Murmurs Abdomen: Positive for: Normal Bowel Sounds. Negative for: Tenderness, Peritoneal Signs Back: Positive for: Normal Inspection Upper Extremity: Positive for: Normal Inspection. Negative for: Cyanosis, Edema Lower Extremity: Positive for: Normal Inspection. Negative for: Edema Neurological: Positive for: GCS=15, CN II-XII Intact, Speech Normal Skin: Positive for: Warm, Dry. Negative for: Rashes Psychiatric: Positive for: Alert, Oriented x 3, Normal Insight, Normal Concentration - Medications Active Medications: Active Medications Generic Name Dose Route Start Last Admin Trade Name Freq PRN Reason Stop Dose Admin Amitriptyline HCl 20 mg 04/02/18 10:00 04/03/18 10:23 Elavil PO 20 mg DAILY [facility] Administration Divalproex Sodium 125 mg 04/02/18 10:00 04/03/18 22:07 Depakote Sprinkles PO Not Given HS [facility]ONY Home Med 1 unit 04/03/18 12:30 04/03/18 22:00 Home Med IH 1 unit Q12 [facility] Administration Ceftriaxone Sodium 1 gm in 100 mls @ 100 mls/hr 04/02/18 10:00 04/03/18 10:10 Rocephin 1 Gram Ivpb IVPB 100 mls/hr DAILY [facility] Administration Protocol Metronidazole 500 mg in 100 mls @ 100 mls/hr 04/02/18 06:00 04/04/18 05:18 Flagyl IVPB 100 mls/hr Q8 [facility] Administration Protocol Pantoprazole Sodium 40 mg in 100 mls @ 20 mls/hr 04/02/18 08:00 04/04/18 07:06 Protonix 40mg Ivpb IVPB 20 mls/hr .Q5H [facility] Administration Dextrose/Sodium Chloride 1,000 mls @ 100 mls/hr 04/02/18 08:15 04/04/18 01:00 Dextrose 5%/0.9% Ns 1000 Ml IV 100 mls/hr .Q10H [facility] Administration Insulin Human Regular 0 units 04/02/18 07:30 04/03/18 22:07 Humulin R Low SC Not Given ACHS [facility] Protocol Loratadine 10 mg 04/02/18 10:00 04/03/18 10:10 Claritin PO 10 mg DAILY [facility] Administration Magnesium Oxide 400 mg 04/01/18 22:30 04/03/18 17:04 Mag-Ox PO 400 mg BID [facility]ON[facility] Administration Ondansetron HCl 4 mg 04/01/18 22:16 Zofran Inj IVP Q6 PRN Nausea/Vomiting - Patient Studies Lab Studies: Microbiology Studies 04/01/18 17:30 Blood Culture - Preliminary Blood NO GROWTH AFTER 48 HOURS 04/01/18 18:42 Urine Culture - Preliminary Urine Gram Negative Shai Lab Studies 04/03/18 04/03/18 04/03/18 Range/Units 21:27 16:41 16:07 WBC 6.8 (4.5-11.0) 10^3/uL RBC 3.73 (3.5-6.1) 10^6/uL Hgb 11.4 L (14.0-18.0) g/dL Hct 34.1 L (42.0-52.0) % MCV 91.4 (80.0-105.0) fl MCH 30.6 (25.0-35.0) pg MCHC 33.4 (31.0-37.0) g/dl RDW 14.9 H (11.5-14.5) % Plt Count 162 (120.0-450.0) 10^3/uL MPV 9.6 (7.0-11.0) fl Gran % 69.3 H (50.0-68.0) % Lymph % (Auto) 23.9 (22.0-35.0) % Kendall % (Auto) 4.3 (1.0-6.0) % Eos % (Auto) 2.2 (1.5-5.0) % Baso % (Auto) 0.3 (0.0-3.0) % Gran # 4.72 (1.4-6.5) Lymph # (Auto) 1.6 (1.2-3.4) Kendall # (Auto) 0.3 (0.1-0.6) Eos # (Auto) 0.2 (0.0-0.7) Baso # (Auto) 0.02 (0.0-2.0) K/mm3 POC Glucose (mg/dL) 130 H 159 H (65-110) mg/dL Hemoglobin A1c (4.2-6.5) % 04/03/18 04/03/18 04/03/18 Range/Units 12:30 11:20 08:03 WBC 8.1 (4.5-11.0) 10^3/uL RBC 3.62 (3.5-6.1) 10^6/uL Hgb 11.0 L (14.0-18.0) g/dL Hct 33.0 L (42.0-52.0) % MCV 91.2 (80.0-105.0) fl MCH 30.4 (25.0-35.0) pg MCHC 33.3 (31.0-37.0) g/dl RDW 14.6 H (11.5-14.5) % Plt Count 168 (120.0-450.0) 10^3/uL MPV 9.5 (7.0-11.0) fl Gran % 72.4 H (50.0-68.0) % Lymph % (Auto) 20.2 L (22.0-35.0) % Kendall % (Auto) 5.3 (1.0-6.0) % Eos % (Auto) 1.7 (1.5-5.0) % Baso % (Auto) 0.4 (0.0-3.0) % Gran # 5.88 (1.4-6.5) Lymph # (Auto) 1.6 (1.2-3.4) Kendall # (Auto) 0.4 (0.1-0.6) Eos # (Auto) 0.1 (0.0-0.7) Baso # (Auto) 0.03 (0.0-2.0) K/mm3 POC Glucose (mg/dL) 144 H 126 H (65-110) mg/dL Hemoglobin A1c (4.2-6.5) % 04/02/18 Range/Units 08:15 WBC (4.5-11.0) 10^3/uL RBC (3.5-6.1) 10^6/uL Hgb (14.0-18.0) g/dL Hct (42.0-52.0) % MCV (80.0-105.0) fl MCH (25.0-35.0) pg MCHC (31.0-37.0) g/dl RDW (11.5-14.5) % Plt Count (120.0-450.0) 10^3/uL MPV (7.0-11.0) fl Gran % (50.0-68.0) % Lymph % (Auto) (22.0-35.0) % Kendall % (Auto) (1.0-6.0) % Eos % (Auto) (1.5-5.0) % Baso % (Auto) (0.0-3.0) % Gran # (1.4-6.5) Lymph # (Auto) (1.2-3.4) Kendall # (Auto) (0.1-0.6) Eos # (Auto) (0.0-0.7) Baso # (Auto) (0.0-2.0) K/mm3 POC Glucose (mg/dL) (65-110) mg/dL Hemoglobin A1c 5.6 (4.2-6.5) % Laboratory Results - last 24 hr 04/02/18 04/03/18 04/03/18 08:15 08:03 11:20 WBC RBC Hgb Hct MCV MCH MCHC RDW Plt Count MPV Gran % Lymph % (Auto) Kendall % (Auto) Eos % (Auto) Baso % (Auto) Gran # Lymph # (Auto) Kendall # (Auto) Eos # (Auto) Baso # (Auto) POC Glucose (mg/dL) 126 H 144 H Hemoglobin A1c 5.6 04/03/18 04/03/18 04/03/18 12:30 16:07 16:41 WBC 8.1 6.8 RBC 3.62 3.73 Hgb 11.0 L 11.4 L Hct 33.0 L 34.1 L MCV 91.2 91.4 MCH 30.4 30.6 MCHC 33.3 33.4 RDW 14.6 H 14.9 H Plt Count 168 162 MPV 9.5 9.6 Gran % 72.4 H 69.3 H Lymph % (Auto) 20.2 L 23.9 Kendall % (Auto) 5.3 4.3 Eos % (Auto) 1.7 2.2 Baso % (Auto) 0.4 0.3 Gran # 5.88 4.72 Lymph # (Auto) 1.6 1.6 Kendall # (Auto) 0.4 0.3 Eos # (Auto) 0.1 0.2 Baso # (Auto) 0.03 0.02 POC Glucose (mg/dL) 159 H Hemoglobin A1c 04/03/18 21:27 WBC RBC Hgb Hct MCV MCH MCHC RDW Plt Count MPV Gran % Lymph % (Auto) Kendall % (Auto) Eos % (Auto) Baso % (Auto) Gran # Lymph # (Auto) Kendall # (Auto) Eos # (Auto) Baso # (Auto) POC Glucose (mg/dL) 130 H Hemoglobin A1c Fingerstick Blood Sugar Results: 130 Critical Care Progress Note - Nutrition Nutrition: Nutrition Category Date Time Status Liquid Diet [DIET] Diets 04/04/18 Breakfast Ordered Assessment/Plan - Assessment and Plan (Free Text) Assessment: 62 y/o male with PMH of HTN, DM s/p EGD for actively bleeding duodenal ulcer repair, s/p 4 units of PRBC transfusion in the setting of acute anemia. admitted to ICU for close observation and H/H monitoring. Doing well, no active bleeding, hemodynamically stable, afebrile Plan: Neuro: -AAOx3. in NAD -maintain normothermia CVS: -normotensive -Maintain MAP>65 Resp: -in NAD -maintain O2 sat >90% -O2 NC prn GI: -s/p EGD with cautery and injection treatment of large duodenal ulcer -continue protonix drip till tomorrow noon as per GI recs -continue zofran q6 prn -continue flagyl -diet advanced to clear liquid Renal/: -IVF D5NS@100cc/hr -UCx: E coli -continue rocephine Heme: -acute anemia H/H 6.6/19.8 in the setting of PUD, active upper GI bleed and melena -s/p 4 units of PRBC transfusion -H/H 10.7/32.6 continue monitoring. transfuse as needed -asymptomatic. no signs of bleeding Prophylaxis: -GI ppx: Pantoprazole -DVT ppx SCD Dispo: continue H/H monitoring, IVF, H/H monitoring Patient is hemodynamically stable, afebrile, no active bleeding. Will be transferred to med/surg Case reviewed and plan discussed with Dr. Sung Thompson, DO PGY1 <Sukhjinder Almaraz - Last Filed: 04/04/18 17:39> CCU Objective - Vital Signs / Intake & Output Vital Signs (Last 4 hours): Vital Signs Temp 04/04/18 16:00 97.9 F Intake and Output (Last 8hrs): Intake & Output 04/04/18 04/04/18 04/04/18 06:59 14:59 22:59 Intake Total 995 Output Total 1300 Balance -305 Weight 170 lb Intake: IV 795 Right Antecubital 795 Albumin 200 Output: Urine 1300 Urine, Voided 1300 Other: # Bowel Movements 0 - Medications Active Medications: Active Medications Generic Name Dose Route Start Last Admin Trade Name Freq PRN Reason Stop Dose Admin Amitriptyline HCl 20 mg 04/02/18 10:00 04/04/18 09:57 Elavil PO 20 mg DAILY TONY Administration Divalproex Sodium 125 mg 04/02/18 10:00 04/03/18 22:07 Depakote Sprinkles PO Not Given HS TONY Home Med 1 unit 04/03/18 12:30 04/03/18 22:00 Home Med IH 1 unit Q12 TONY Administration Pantoprazole Sodium 40 mg in 100 mls @ 20 mls/hr 04/02/18 08:00 04/04/18 16:59 Protonix 40mg Ivpb IVPB 20 mls/hr .Q5H TONY Administration Dextrose/Sodium Chloride 1,000 mls @ 100 mls/hr 04/02/18 08:15 04/04/18 15:56 Dextrose 5%/0.9% Ns 1000 Ml IV 100 mls/hr .Q10H TONY Administration Insulin Human Regular 0 units 04/02/18 07:30 04/04/18 12:00 Humulin R Low SC Not Given ACHS TONY Protocol Loratadine 10 mg 04/02/18 10:00 04/03/18 10:10 Claritin PO 10 mg DAILY TONY Administration Magnesium Oxide 400 mg 04/01/18 22:30 04/04/18 09:57 Mag-Ox PO 400 mg BID TONY Administration Ondansetron HCl 4 mg 04/01/18 22:16 Zofran Inj IVP Q6 PRN Nausea/Vomiting - Patient Studies Lab Studies: Microbiology Studies 04/01/18 17:30 Blood Culture - Preliminary Blood NO GROWTH AFTER 3 DAYS 04/02/18 14:30 MRSA Culture (Admit) - Final Nose MRSA NOT DETECTED 04/01/18 18:42 Urine Culture - Final Urine Escherichia Coli Lab Studies 04/04/18 04/04/18 04/03/18 Range/Units 07:30 07:30 21:27 WBC 6.5 (4.5-11.0) 10^3/uL RBC 3.57 (3.5-6.1) 10^6/uL Hgb 10.7 L (14.0-18.0) g/dL Hct 32.6 L (42.0-52.0) % MCV 91.3 (80.0-105.0) fl MCH 30.0 (25.0-35.0) pg MCHC 32.8 (31.0-37.0) g/dl RDW 14.7 H (11.5-14.5) % Plt Count 167 (120.0-450.0) 10^3/uL MPV 9.5 (7.0-11.0) fl Gran % 68.8 H (50.0-68.0) % Lymph % (Auto) 22.8 (22.0-35.0) % Kendall % (Auto) 5.9 (1.0-6.0) % Eos % (Auto) 2.2 (1.5-5.0) % Baso % (Auto) 0.3 (0.0-3.0) % Gran # 4.46 (1.4-6.5) Lymph # (Auto) 1.5 (1.2-3.4) Kendall # (Auto) 0.4 (0.1-0.6) Eos # (Auto) 0.1 (0.0-0.7) Baso # (Auto) 0.02 (0.0-2.0) K/mm3 Sodium 139 (132-148) mmol/L Potassium 3.8 (3.6-5.0) mmol/L Chloride 108 H (98-107) mmol/L Carbon Dioxide 26 (21-33) mmol/L Anion Gap 9 L (10-20) BUN 7 (7-21) mg/dL Creatinine 0.8 (0.8-1.5) mg/dl Est GFR ( Amer) > 60 Est GFR (Non-Af Amer) > 60 POC Glucose (mg/dL) 130 H (65-110) mg/dL Random Glucose 134 H (70-110) mg/dL Calcium 7.6 L (8.4-10.5) mg/dL Total Bilirubin 0.4 (0.2-1.3) mg/dL AST 48 (17-59) U/L ALT 54 (7-56) U/L Alkaline Phosphatase 50 (38-126) U/L Total Protein 5.8 (5.8-8.3) g/dL Albumin 3.2 (3.0-4.8) g/dL Globulin 2.6 gm/dL Albumin/Globulin Ratio 1.2 (1.1-1.8) 04/03/18 Range/Units 16:41 WBC (4.5-11.0) 10^3/uL RBC (3.5-6.1) 10^6/uL Hgb (14.0-18.0) g/dL Hct (42.0-52.0) % MCV (80.0-105.0) fl MCH (25.0-35.0) pg MCHC (31.0-37.0) g/dl RDW (11.5-14.5) % Plt Count (120.0-450.0) 10^3/uL MPV (7.0-11.0) fl Gran % (50.0-68.0) % Lymph % (Auto) (22.0-35.0) % Kendall % (Auto) (1.0-6.0) % Eos % (Auto) (1.5-5.0) % Baso % (Auto) (0.0-3.0) % Gran # (1.4-6.5) Lymph # (Auto) (1.2-3.4) Kendall # (Auto) (0.1-0.6) Eos # (Auto) (0.0-0.7) Baso # (Auto) (0.0-2.0) K/mm3 Sodium (132-148) mmol/L Potassium (3.6-5.0) mmol/L Chloride (98-107) mmol/L Carbon Dioxide (21-33) mmol/L Anion Gap (10-20) BUN (7-21) mg/dL Creatinine (0.8-1.5) mg/dl Est GFR ( Amer) Est GFR (Non-Af Amer) POC Glucose (mg/dL) 159 H (65-110) mg/dL Random Glucose (70-110) mg/dL Calcium (8.4-10.5) mg/dL Total Bilirubin (0.2-1.3) mg/dL AST (17-59) U/L ALT (7-56) U/L Alkaline Phosphatase (38-126) U/L Total Protein (5.8-8.3) g/dL Albumin (3.0-4.8) g/dL Globulin gm/dL Albumin/Globulin Ratio (1.1-1.8) Laboratory Results - last 24 hr 04/03/18 04/03/18 04/04/18 16:41 21:27 07:30 WBC 6.5 RBC 3.57 Hgb 10.7 L Hct 32.6 L MCV 91.3 MCH 30.0 MCHC 32.8 RDW 14.7 H Plt Count 167 MPV 9.5 Gran % 68.8 H Lymph % (Auto) 22.8 Kendall % (Auto) 5.9 Eos % (Auto) 2.2 Baso % (Auto) 0.3 Gran # 4.46 Lymph # (Auto) 1.5 Kendall # (Auto) 0.4 Eos # (Auto) 0.1 Baso # (Auto) 0.02 Sodium Potassium Chloride Carbon Dioxide Anion Gap BUN Creatinine Est GFR ( Amer) Est GFR (Non-Af Amer) POC Glucose (mg/dL) 159 H 130 H Random Glucose Calcium Total Bilirubin AST ALT Alkaline Phosphatase Total Protein Albumin Globulin Albumin/Globulin Ratio 04/04/18 07:30 WBC RBC Hgb Hct MCV MCH MCHC RDW Plt Count MPV Gran % Lymph % (Auto) Kendall % (Auto) Eos % (Auto) Baso % (Auto) Gran # Lymph # (Auto) Kendall # (Auto) Eos # (Auto) Baso # (Auto) Sodium 139 Potassium 3.8 Chloride 108 H Carbon Dioxide 26 Anion Gap 9 L BUN 7 Creatinine 0.8 Est GFR ( Amer) > 60 Est GFR (Non-Af Amer) > 60 POC Glucose (mg/dL) Random Glucose 134 H Calcium 7.6 L Total Bilirubin 0.4 AST 48 ALT 54 Alkaline Phosphatase 50 Total Protein 5.8 Albumin 3.2 Globulin 2.6 Albumin/Globulin Ratio 1.2 Critical Care Progress Note - Nutrition Nutrition: Nutrition Category Date Time Status Liquid Diet [DIET] Diets 04/04/18 Lunch Ordered Attending/Attestation - Attestation I have personally seen and examined this patient.: Yes I have fully participated in the care of the patient.: Yes I have reviewed all pertinent clinical information: Yes Notes (Text): 04/04/18 17:[address] Almaraz note
[2018-04-04 07:46] LABS: BASO # 0.02 K/mm3 (0.0-2.0); BASO % 0.3 % (0.0-3.0); EOS # 0.1 (0.0-0.7); EOS % 2.2 % (1.5-5.0); GRAN # 4.46 (1.4-6.5); GRAN % 68.8 % (50.0-68.0); HEMOGLOBIN 10.7 g/dL (14.0-18.0); LYMPH # 1.5 (1.2-3.4); LYMPH % 22.8 % (22.0-35.0); MEAN CELL VOLUME 91.3 fl (80.0-105.0); MEAN CORPUSCULAR HGB CONC 32.8 g/dl (31.0-37.0); MEAN PLATELET VOLUME 9.5 fl (7.0-11.0); MONO # 0.4 (0.1-0.6); MONO % 5.9 % (1.0-6.0); RBC 3.57 10^6/uL (3.5-6.1); RED CELL DISTRIBUTION WIDTH 14.7 % (11.5-14.5); WHITE BLOOD COUNT 6.5 10^3/uL (4.5-11.0)
--- NOTE | 2018-04-04 07:52 | CP.PCM.PN ---
Subjective - Date & Time of Evaluation Date of Evaluation: 04/04/18 Time of Evaluation: 07:48 - Subjective Subjective: Surgery Progress note- Dr. Burch Patient seen and examined at bedside. No new complaints. Denies nausea, vomiting, fevers chills. + flatus and BM. Denies BRBPR or blood in stool. Out of bed and ambulating. currently on protonix ggt. Hgb has remained stable. no signs of acute bleed. Objective - Vital Signs/Intake and Output Vital Signs (last 24 hours): Temp Pulse Resp BP Pulse Ox 98.5 F 65 18 103/57 L 97 04/04/18 04:00 04/04/18 07:00 04/04/18 07:00 04/04/18 07:00 04/04/18 07:00 - Medications Medications: Current Medications Amitriptyline HCl (Elavil) 20 mg PO DAILY [facility] Last Admin: 04/03/18 10:23 Dose: 20 mg Divalproex Sodium (Depakote Sprinkles) 125 mg PO HS [facility] Last Admin: 04/03/18 22:07 Dose: Not Given Home Med (Home Med) 1 unit IH Q12 [facility] Last Admin: 04/03/18 22:00 Dose: 1 unit Ceftriaxone Sodium (Rocephin 1 Gram Ivpb) 1 gm in 100 mls @ 100 mls/hr IVPB DAILY [facility]; Protocol Last Admin: 04/03/18 10:10 Dose: 100 mls/hr Metronidazole (Flagyl) 500 mg in 100 mls @ 100 mls/hr IVPB Q8 [facility]; Protocol Last Admin: 04/04/18 05:18 Dose: 100 mls/hr Pantoprazole Sodium (Protonix 40mg Ivpb) 40 mg in 100 mls @ 20 mls/hr IVPB .Q5H [facility] Last Admin: 04/04/18 07:06 Dose: 20 mls/hr Dextrose/Sodium Chloride (Dextrose 5%/0.9% Ns 1000 Ml) 1,000 mls @ 100 mls/hr IV .Q10H [facility] Last Admin: 04/04/18 01:00 Dose: 100 mls/hr Insulin Human Regular (Humulin R Low) 0 units SC ACHS [facility]; Protocol Last Admin: 04/03/18 22:07 Dose: Not Given Loratadine (Claritin) 10 mg PO DAILY [facility] Last Admin: 04/03/18 10:10 Dose: 10 mg Magnesium Oxide (Mag-Ox) 400 mg PO BID [facility] Last Admin: 04/03/18 17:04 Dose: 400 mg Ondansetron HCl (Zofran Inj) 4 mg IVP Q6 PRN PRN Reason: Nausea/Vomiting - Labs Labs: 04/04/18 07:30 04/02/18 08:15 PT 12.4 SECONDS (9.4-12.5) 04/03/18 05:00 INR 1.08 04/03/18 05:00 APTT 27.6 Seconds (25.1-36.5) 04/02/18 08:30 - Constitutional Appears: Non-toxic, No Acute Distress - Eye Exam Eye Exam: EOMI. absent: Scleral icterus - ENT Exam ENT Exam: Mucous Membranes Moist - Respiratory Exam Respiratory Exam: NORMAL BREATHING PATTERN. absent: Accessory Muscle Use, Respiratory Distress - Cardiovascular Exam Cardiovascular Exam: +S1, +S2. absent: Bradycardia, Tachycardia - GI/Abdominal Exam GI & Abdominal Exam: Soft. absent: Distended, Firm, Guarding, Rigid, Tenderness - Extremities Exam Extremities Exam: absent: Calf Tenderness - Neurological Exam Neurological Exam: Alert, Awake, Oriented x3 - Psychiatric Exam Psychiatric exam: Normal Affect - Skin Skin Exam: Intact, Warm Assessment and Plan - Assessment and Plan (Free Text) Assessment: 62M w/ duodenal bulb ulcer s/p endoscopy w/ electrocautery to achieve hemostasis of bleeding on 04/03/18 Plan: - monitor H/H - transfuse PRN - will continue to follow - diet recs per GI - replete lytes PRN - discussed w/ Dr. Burch surgical attending PGY2
[2018-04-04 07:58] LABS: ALB/GLOB RATIO 1.2 (1.1-1.8); ALBUMIN 3.2 g/dL (3.0-4.8); ALT/SGPT 54 U/L (7-56); AST/SGOT 48 U/L (17-59); BLOOD UREA NITROGEN 7 mg/dL (7-21); CALCIUM 7.6 mg/dL (8.4-10.5); GFR NON-AFRICAN AMERICAN > 60
[2018-04-04] MEDS: Insulin Reg-LOW-Coverage SC SCH ×4 (08:00→22:45)
[2018-04-04] MEDS: Magnesium Oxide 400 mg Tab UD PO SCH ×2 (09:57→19:20)
[2018-04-04] MEDS: cefTRIAXone 1 gm 1 GM/100 ML BAG IVPB SCH (09:58)
--- NOTE | 2018-04-04 10:10 | PN ---
DATE: 04/02/2018 SUBJECTIVE: The patient was seen and examined in the morning at the bedside. Looking comfortable. No fever. No chills. No hematuria or hematochezia. No headache or dizziness. No chest pain or palpitation. After that the patient underwent upper endoscopy and I had discussion done with Dr. Vaz. PHYSICAL EXAMINATION: VITAL SIGNS: Temperature 99.2, pulse 70, respirations 20, blood pressure 113/65, pulse oximetry 97%. HEENT: Head is normocephalic and atraumatic. Eyes, PERRLA. Extraocular movements are intact. Conjunctivae clear. Nose patent. Mucous membranes are moist. NECK: Supple. No carotid bruits. No JVD. No thyromegaly. CHEST: Bilaterally symmetrical. HEART: S1 and S2 positive. LUNGS: Clear to auscultation. ABDOMEN: Soft. Bowel sounds present. No organomegaly. EXTREMITIES: No edema. No cyanosis. NEUROLOGIC: Awake and alert. Moving all four extremities. No focal deficits. MEDICATIONS: Depakote, Flagyl, Protonix, dextrose, loratadine, magnesium oxide. LABORATORY DATA: White blood cell count 9.5, hemoglobin 8.4, hematocrit 24.6, platelets 135. Sodium 137, potassium 4, BUN 21, creatinine 0.8, glucose 90. ASSESSMENT AND PLAN: Elías Madden is a 62-year-old male with anemia, came with gastrointestinal bleeding, had EGD done by Dr. Vaz. By Renal Service ____ vascular active bleeding was noted in the bulb. Complete hemostasis was obtained with BiCAP treatment of visible bleeding vessel after injection of 1:10,000 epinephrine used. At this time, Dr. Vaz transferred the patient to ICU ____. We will follow up H and H. Continue Protonix. Patient has history of hypertension, hypercholesterolemia, diabetes mellitus, asthma, history of palpitation, abdominal pain, bloating, black stool, lightheadedness. ____ transferred to the ICU. We will transfuse hemoglobin if less than 7. GI and DVT prophylaxis. Repeat labs. We will followup. Elina Cole MD [facility] # [id number]
--- NOTE | 2018-04-04 10:46 | CP.PCM.PN ---
<Odilon Dickinson - Last Filed: 04/04/18 20:06> Subjective - Date & Time of Evaluation Date of Evaluation: 04/04/18 Time of Evaluation: 09:50 - Subjective Subjective: PGY6 GI Fellow Progress Note Patient seen and examined bedside this morning. Patient states that he is feeling well but notes some abdominal bloating. Pain is minimal. NO episodes of melena or hemaotchezia. 12 system ROS performed and negative except where stated Objective - Vital Signs/Intake and Output Vital Signs (last 24 hours): Temp Pulse Resp BP Pulse Ox 98.5 F 63 14 112/60 96 04/04/18 04:00 04/04/18 09:20 04/04/18 09:20 04/04/18 09:00 04/04/18 09:20 Intake and Output: 04/04/18 04/04/18 06:59 18:59 Intake Total 995 Output Total 1300 Balance -305 - Medications Medications: Current Medications Amitriptyline HCl (Elavil) 20 mg PO DAILY [facility] Last Admin: 04/04/18 09:57 Dose: 20 mg Divalproex Sodium (Depakote Sprinkles) 125 mg PO HS [facility] Last Admin: 04/03/18 22:07 Dose: Not Given Home Med (Home Med) 1 unit IH Q12 [facility] Last Admin: 04/03/18 22:00 Dose: 1 unit Ceftriaxone Sodium (Rocephin 1 Gram Ivpb) 1 gm in 100 mls @ 100 mls/hr IVPB DAILY [facility]; Protocol Stop: 04/06/18 10:59 Last Admin: 04/04/18 09:58 Dose: 100 mls/hr Metronidazole (Flagyl) 500 mg in 100 mls @ 100 mls/hr IVPB Q8 [facility]; Protocol Last Admin: 04/04/18 05:18 Dose: 100 mls/hr Pantoprazole Sodium (Protonix 40mg Ivpb) 40 mg in 100 mls @ 20 mls/hr IVPB .Q5H [facility] Last Admin: 04/04/18 07:06 Dose: 20 mls/hr Dextrose/Sodium Chloride (Dextrose 5%/0.9% Ns 1000 Ml) 1,000 mls @ 100 mls/hr IV .Q10H [facility] Last Admin: 04/04/18 01:00 Dose: 100 mls/hr Insulin Human Regular (Humulin R Low) 0 units SC ACHS [facility]; Protocol Last Admin: 04/04/18 08:00 Dose: Not Given Loratadine (Claritin) 10 mg PO DAILY [facility] Last Admin: 04/03/18 10:10 Dose: 10 mg Magnesium Oxide (Mag-Ox) 400 mg PO BID [facility] Last Admin: 04/04/18 09:57 Dose: 400 mg Ondansetron HCl (Zofran Inj) 4 mg IVP Q6 PRN PRN Reason: Nausea/Vomiting - Labs Labs: 04/04/18 07:30 04/04/18 07:30 PT 12.4 SECONDS (9.4-12.5) 04/03/18 05:00 INR 1.08 04/03/18 05:00 APTT 27.6 Seconds (25.1-36.5) 04/02/18 08:30 - Constitutional Appears: Non-toxic, No Acute Distress - Eye Exam Eye Exam: EOMI, PERRL - ENT Exam ENT Exam: Mucous Membranes Moist - Respiratory Exam Respiratory Exam: Clear to Ausculation Bilateral. absent: Rales, Rhonchi, Wheezes - Cardiovascular Exam Cardiovascular Exam: RRR, +S1, +S2 - GI/Abdominal Exam GI & Abdominal Exam: Soft, Normal Bowel Sounds. absent: Distended, Firm, Guarding, Rigid, Tenderness, Organomegaly - Extremities Exam Extremities Exam: Normal Inspection. absent: Pedal Edema - Neurological Exam Neurological Exam: Alert, Awake, Oriented x3 - Psychiatric Exam Psychiatric exam: Normal Affect, Normal Mood - Skin Skin Exam: Dry, Warm Assessment and Plan - Assessment and Plan (Free Text) Assessment: Patient is a 62yo male with PMHx significant for HTN, HLD, DM and asthma who presented with abdominal pain and dark stool -Acute, symptomatic blood loss anemia -Peptic ulcer disease Plan: -Continue PPI gtt for total of 72 hours (until tomorrow afternoon), then transition to PO therapy -S/P cautery and injection of ulcer with visible vessel -OK to initiate clear liquid diet -Monitor course <Татьяна,Kovil V - Last Filed: 04/04/18 22:52> Objective - Vital Signs/Intake and Output Vital Signs (last 24 hours): Temp Pulse Resp BP Pulse Ox 97.9 F 66 19 110/63 97 04/04/18 16:00 04/04/18 20:20 04/04/18 20:20 04/04/18 20:00 04/04/18 20:20 Intake and Output: 04/04/18 04/05/18 18:59 06:59 Intake Total 2000 Output Total 700 Balance 1300 - Medications Medications: Current Medications Amitriptyline HCl (Elavil) 20 mg PO DAILY [facility] Last Admin: 04/04/18 09:57 Dose: 20 mg Divalproex Sodium (Depakote Sprinkles) 125 mg PO HS [facility] Last Admin: 04/04/18 22:48 Dose: 125 mg Home Med (Home Med) 1 unit IH Q12 [facility] Last Admin: 04/04/18 22:48 Dose: 1 unit Pantoprazole Sodium (Protonix 40mg Ivpb) 40 mg in 100 mls @ 20 mls/hr IVPB .Q5H [facility] Last Admin: 04/04/18 22:46 Dose: 20 mls/hr Dextrose/Sodium Chloride (Dextrose 5%/0.9% Ns 1000 Ml) 1,000 mls @ 100 mls/hr IV .Q10H [facility] Last Admin: 04/04/18 15:56 Dose: 100 mls/hr Insulin Human Regular (Humulin R Low) 0 units SC ACHS [facility]; Protocol Last Admin: 04/04/18 22:45 Dose: Not Given Loratadine (Claritin) 10 mg PO DAILY [facility] Last Admin: 04/04/18 19:20 Dose: 10 mg Magnesium Oxide (Mag-Ox) 400 mg PO BID [facility] Last Admin: 04/04/18 19:20 Dose: 400 mg Ondansetron HCl (Zofran Inj) 4 mg IVP Q6 PRN PRN Reason: Nausea/Vomiting - Labs Labs: 04/04/18 07:30 04/04/18 07:30 PT 12.4 SECONDS (9.4-12.5) 04/03/18 05:00 INR 1.08 04/03/18 05:00 APTT 27.6 Seconds (25.1-36.5) 04/02/18 08:30 Attending/Attestation - Attestation I have personally seen and examined this patient.: Yes I have fully participated in the care of the patient.: Yes I have reviewed all pertinent clinical information, including history, physical exam and plan: Yes Notes (Text): This is an addendum to GI progress report dictated by the GI Fellow. The patient was seen and examined earlier. Medical records, lab studies, imagings were reviewed. Last 24 hours events reviewed. Agreed with the above treatment plan as outlined in GI Fellow 's notes with the addition of the following Clips remained stable Continue Protonix drip Clear liquid diet 04/04/18 22:52
--- NOTE | 2018-04-04 14:18 | PN ---
DATE: 04/04/2018 SUBJECTIVE: The patient seen at bedside. He is comfortable. He is talking in full sentences. He is not in respiratory distress otherwise. No more hemorrhagic events or drop in hemoglobin noted overnight. The patient was cleared for clear liquid diet by GI Service. PHYSICAL EXAMINATION: VITAL SIGNS: Blood pressure 112/60, heart rate 63, respiratory rate 14, oxygen saturation 96% on room air. HEENT: Head and neck atraumatic. LUNGS: Clear auscultation bilaterally. HEART: Regular rate and rhythm. S1 and S2 normal. ABDOMEN: Soft, nontender, nondistended. MUSCULOSKELETAL: No C/C/E. NEURO: The patient moves all extremities spontaneously. SKIN: Moist. PSYCH: The patient is alert, awake and oriented x3. LABORATORY DATA: WBC 6.5, hemoglobin 10.7, platelet count 167. Sodium 139, potassium 3.8, chloride 108, carbon dioxide 26, BUN 7, creatinine 0.8, glucose 134. AST 48, ALT 54, total bilirubin 0.4. MEDICATIONS: Elavil; D5 normal saline at 100 mL/hour; Depakote; Flagyl; regular insulin sliding scale, low protocol, Claritin, magnesium, Zofran p.r.n., Protonix, ceftriaxone. ASSESSMENT AND PLAN: This is a 62 gentleman who presented with upper GI bleed secondary to duodenal bleeding now s/p EGD with cauterizing bleeding vessel and achieving hemostasis. Hemoglobin is stable. Hemodynamically and respiratory lamb stable. The patient is asymptomatic at present time. He was advanced to clear liquid diet by GI service. I spoke with Dr. Vaz who cleared him for downgrading to med-surg. We will continue target euvolemia, euglycemia, normothermia and oxygen saturation more than 90%. We will continue with DVT, GI prophylaxis. ccm time 40 min Sukhjinder Almaraz MD MTDD
[2018-04-04] MEDS: FLUTICASONE SALMETEROL IH SCH ×2 (19:14→22:48)
[2018-04-04] MEDS: Divalproex 125 mg EC Sprinkle Cap PO SCH (22:48)
[2018-04-05] MEDS: Dextrose 5%/0.9% NS 1,000 ML IV SCH (02:12)
[2018-04-05] MEDS: Pantoprazole 40mg/100mL NS 40 MG/100 ML BAG IVPB SCH (05:13)
[2018-04-05] MEDS: Insulin Reg-LOW-Coverage SC SCH ×4 (07:30→21:27)
--- NOTE | 2018-04-05 08:17 | PN ---
DATE: 04/04/2018 SUBJECTIVE: The patient is a 62-year-old male. The patient was seen and examined at the bedside on 04/04/2018. Looking comfortable. Does not look in respiratory distress. No fever. No chills. No hematuria or hematochezia. Hemoglobin is almost stable. No events happened overnight. Getting clear liquid diet by GI. PHYSICAL EXAMINATION: VITAL SIGNS: Blood pressure 110/60, heart rate 50, respiratory rate 20, oxygen saturation 96% on room air. HEENT: Head is normocephalic and atraumatic. Eyes PERRLA. Extraocular muscles intact. Conjunctivae clear. Nose patent. Mucous membranes moist. NECK: Supple. No carotid bruits. No JVD or thyromegaly. CHEST: Bilaterally symmetrical. HEART: S1 and S2 positive. LUNGS: Clear to auscultation. ABDOMEN: Soft. Bowel sounds present. No organomegaly. EXTREMITIES: No edema, no cyanosis. NEUROLOGIC: The patient is awake and alert. Moving all four extremities. No focal deficits. LABORATORY DATA: White blood cells 3.5, hemoglobin 10.7, and platelets 167. Sodium 139, potassium 3.8, BUN 7, creatinine 0.8, glucose 134. AST 48 and ALT 54. MEDICATIONS: Elavil, NS, Depakote, Flagyl, insulin sliding scale, Claritin, magnesium, Zofran, Protonix, and ceftriaxone. ASSESSMENT AND PLAN: The patient is a 62-year-old male who came with gastrointestinal bleeding, now status post cauterization and hemostasis. Endoscopy was done by Dr. Vaz over the weekend. Hemoglobin is stable now. Hemodynamically and respiratory lamb, the patient is stable. He was advised clear liquid diet by Gastroenterology. Continue target . Gastrointestinal and deep vein thrombosis prophylaxis. The patient has a history of diabetes mellitus. The patient has actually bleeding duodenal ulcers, receives so far 5 units of blood. At this time, no surgery is planned. We will follow up. Elina Cole MD
[2018-04-05 08:32] LABS: HEMOGLOBIN 11.1 g/dL (14.0-18.0); MEAN CELL VOLUME 92.3 fl (80.0-105.0); MEAN CORPUSCULAR HEMOGLOBIN 30.3 pg (25.0-35.0); MEAN CORPUSCULAR HGB CONC 32.8 g/dl (31.0-37.0); MEAN PLATELET VOLUME 9.6 fl (7.0-11.0); RBC 3.66 10^6/uL (3.5-6.1); RED CELL DISTRIBUTION WIDTH 14.9 % (11.5-14.5); WHITE BLOOD COUNT 6.7 10^3/uL (4.5-11.0)
[2018-04-05] MEDS: Magnesium Oxide 400 mg Tab UD PO SCH ×2 (09:21→17:29)
[2018-04-05] MEDS: FLUTICASONE SALMETEROL IH SCH ×2 (09:23→21:32)
--- NOTE | 2018-04-05 09:44 | CP.PCM.PN ---
Subjective - Date & Time of Evaluation Date of Evaluation: 04/05/18 Time of Evaluation: 09:37 - Subjective Subjective: Clement mAado DO PGY1 - Internal Medicine Business Job Titles - Surgical Progress Note for Dr. Burch Patient was seen and examined this morning at bedside in ICU. No acute events reported overnight; patient afebrile; passing flatus; Voiding without difficulty; no rectal bleeding reported. Objective - Vital Signs/Intake and Output Vital Signs (last 24 hours): Temp Pulse Resp BP Pulse Ox 98.7 F 57 L 14 103/63 96 04/05/18 08:00 04/05/18 07:30 04/05/18 07:30 04/05/18 07:00 04/05/18 07:30 Intake and Output: 04/05/18 04/05/18 06:59 18:59 Intake Total 1840 Output Total 1600 Balance 240 - Medications Medications: Current Medications Amitriptyline HCl (Elavil) 20 mg PO DAILY [facility] Last Admin: 04/05/18 09:21 Dose: 20 mg Divalproex Sodium (Depakote Sprinkles) 125 mg PO HS [facility] Last Admin: 04/04/18 22:48 Dose: 125 mg Home Med (Home Med) 1 unit IH Q12 [facility] Last Admin: 04/05/18 09:23 Dose: 1 unit Pantoprazole Sodium (Protonix 40mg Ivpb) 40 mg in 100 mls @ 20 mls/hr IVPB .Q5H [facility] Last Admin: 04/05/18 05:13 Dose: 20 mls/hr Dextrose/Sodium Chloride (Dextrose 5%/0.9% Ns 1000 Ml) 1,000 mls @ 100 mls/hr IV .Q10H [facility] Last Admin: 04/05/18 02:12 Dose: 100 mls/hr Insulin Human Regular (Humulin R Low) 0 units SC ACHS [facility]; Protocol Last Admin: 04/05/18 07:30 Dose: Not Given Loratadine (Claritin) 10 mg PO DAILY [facility] Last Admin: 04/05/18 09:23 Dose: 10 mg Magnesium Oxide (Mag-Ox) 400 mg PO BID [facility] Last Admin: 04/05/18 09:21 Dose: 400 mg Ondansetron HCl (Zofran Inj) 4 mg IVP Q6 PRN PRN Reason: Nausea/Vomiting - Labs Labs: 04/05/18 08:20 04/04/18 07:30 PT 12.4 SECONDS (9.4-12.5) 04/03/18 05:00 INR 1.08 04/03/18 05:00 APTT 27.6 Seconds (25.1-36.5) 04/02/18 08:30 - Constitutional Appears: Non-toxic, No Acute Distress - Eye Exam Eye Exam: EOMI. absent: Scleral icterus - ENT Exam ENT Exam: Mucous Membranes Moist - Respiratory Exam Respiratory Exam: NORMAL BREATHING PATTERN. absent: Accessory Muscle Use, Respiratory Distress - Cardiovascular Exam Cardiovascular Exam: +S1, +S2. absent: Bradycardia, Tachycardia - GI/Abdominal Exam GI & Abdominal Exam: Soft. absent: Distended, Firm, Guarding, Rigid, Tenderness - Extremities Exam Extremities Exam: absent: Calf Tenderness - Neurological Exam Neurological Exam: Alert, Awake, Oriented x3 - Psychiatric Exam Psychiatric exam: Normal Affect - Skin Skin Exam: Intact, Warm Assessment and Plan - Assessment and Plan (Free Text) Assessment: 62M w/ duodenal bulb ulcer s/p endoscopy w/ electrocautery to achieve hemostasis of bleeding on 04/03/18 Plan: -Continue to monitor H/H -Continue monitoring for s/s anemia/ hemorrhage -Transfuse PRN -Dietary recs as per GI -Replete electrolytes PRN -Further recs per Dr. Marcin Amado DO PGY1 - Internal Medicine Business Job Titles - Surgical Progress Note for Dr. Burch
--- NOTE | 2018-04-05 11:50 | CP.PCM.PN ---
<Odilon Dickinson - Last Filed: 04/05/18 16:37> Subjective - Date & Time of Evaluation Date of Evaluation: 04/05/18 Time of Evaluation: 07:15 - Subjective Subjective: PGY6 GI Fellow Progress Note Patient seen and examined bedside this morning. The patient states that he is feeling well and has no complaints. No BM overnight and thus no hematochezia or melena. Minimal abdominal pain. 12 system ROS performed and negative except where stated Objective - Vital Signs/Intake and Output Vital Signs (last 24 hours): Temp Pulse Resp BP Pulse Ox 98.7 F 57 L 14 103/63 96 04/05/18 08:00 04/05/18 07:30 04/05/18 07:30 04/05/18 07:00 04/05/18 07:30 Intake and Output: 04/05/18 04/05/18 06:59 18:59 Intake Total 1840 Output Total 1600 Balance 240 - Medications Medications: Current Medications Amitriptyline HCl (Elavil) 20 mg PO DAILY [facility] Last Admin: 04/05/18 09:21 Dose: 20 mg Divalproex Sodium (Depakote Sprinkles) 125 mg PO HS [facility] Last Admin: 04/04/18 22:48 Dose: 125 mg Home Med (Home Med) 1 unit IH Q12 [facility] Last Admin: 04/05/18 09:23 Dose: 1 unit Insulin Human Regular (Humulin R Low) 0 units SC [facility]; Protocol Last Admin: 04/05/18 07:30 Dose: Not Given Loratadine (Claritin) 10 mg PO DAILY [facility] Last Admin: 04/05/18 09:23 Dose: 10 mg Magnesium Oxide (Mag-Ox) 400 mg PO BID [facility] Last Admin: 04/05/18 09:21 Dose: 400 mg Ondansetron HCl (Zofran Inj) 4 mg IVP Q6 PRN PRN Reason: Nausea/Vomiting Pantoprazole Sodium (Protonix Inj) 40 mg IVP Q12 [facility] - Labs Labs: 04/05/18 08:20 04/04/18 07:30 PT 12.4 SECONDS (9.4-12.5) 04/03/18 05:00 INR 1.08 04/03/18 05:00 APTT 27.6 Seconds (25.1-36.5) 04/02/18 08:30 - Constitutional Appears: Non-toxic, No Acute Distress - Eye Exam Eye Exam: EOMI, PERRL - ENT Exam ENT Exam: Mucous Membranes Moist - Respiratory Exam Respiratory Exam: Clear to Ausculation Bilateral. absent: Rales, Rhonchi, Wheezes - Cardiovascular Exam Cardiovascular Exam: RRR, +S1, +S2 - GI/Abdominal Exam GI & Abdominal Exam: Soft, Normal Bowel Sounds. absent: Distended, Firm, Guarding, Rigid, Tenderness, Organomegaly - Extremities Exam Extremities Exam: Normal Inspection. absent: Pedal Edema - Neurological Exam Neurological Exam: Alert, Awake, Oriented x3 - Psychiatric Exam Psychiatric exam: Normal Affect, Normal Mood - Skin Skin Exam: Dry, Warm Assessment and Plan - Assessment and Plan (Free Text) Assessment: Patient is a 62yo male with PMHx significant for HTN, HLD, DM and asthma who presented with abdominal pain and dark stool -Acute, symptomatic blood loss anemia -Peptic ulcer disease Plan: -OK to discontinue PPI gtt -Start Protonix 40mg PO BID -Advance to soft diet -If tolerating, OK to D/C from GI standpoint with close outpatient follow up -Patient will benefit from endoscopy in 4-5 weeks to check healing <Beth Vaz V - Last Filed: 04/05/18 23:07> Objective - Vital Signs/Intake and Output Vital Signs (last 24 hours): Temp Pulse Resp BP Pulse Ox 98.7 F 77 20 118/70 96 04/05/18 22:10 04/05/18 22:10 04/05/18 22:10 04/05/18 22:10 04/05/18 22:10 Intake and Output: 04/05/18 04/06/18 18:59 06:59 Intake Total 1220 Output Total 600 Balance 620 - Medications Medications: Current Medications Amitriptyline HCl (Elavil) 20 mg PO DAILY [facility] Last Admin: 04/05/18 09:21 Dose: 20 mg Divalproex Sodium (Depakote Sprinkles) 125 mg PO HS [facility] Last Admin: 04/05/18 21:28 Dose: 125 mg Home Med (Home Med) 1 unit IH Q12 [facility] Last Admin: 04/05/18 21:32 Dose: 1 unit Insulin Human Regular (Humulin R Low) 0 units SC ACHS [facility]; Protocol Last Admin: 04/05/18 21:27 Dose: Not Given Loratadine (Claritin) 10 mg PO DAILY [facility] Last Admin: 04/05/18 09:23 Dose: 10 mg Magnesium Oxide (Mag-Ox) 400 mg PO BID [facility] Last Admin: 04/05/18 17:29 Dose: 400 mg Ondansetron HCl (Zofran Inj) 4 mg IVP Q6 PRN PRN Reason: Nausea/Vomiting Pantoprazole Sodium (Protonix Inj) 40 mg IVP Q12 [facility] Last Admin: 04/05/18 21:29 Dose: 40 mg - Labs Labs: 04/05/18 08:20 04/04/18 07:30 PT 12.4 SECONDS (9.4-12.5) 04/03/18 05:00 INR 1.08 04/03/18 05:00 APTT 27.6 Seconds (25.1-36.5) 04/02/18 08:30 Attending/Attestation - Attestation I have personally seen and examined this patient.: Yes I have fully participated in the care of the patient.: Yes I have reviewed all pertinent clinical information, including history, physical exam and plan: Yes Notes (Text): This is an addendum to GI progress report dictated by the GI Fellow.The patient was seen and examined earlier. Medical records, lab studies, imagings were reviewed. Last 24 hours events reviewed. Agreed with the above treatment plan as outlined in GI Fellow 's notes with the addition of the following 04/05/18 23:07
[2018-04-05] MEDS: Divalproex 125 mg EC Sprinkle Cap PO SCH (21:28)
[2018-04-05 22:11] VITALS: RESP 20
--- NOTE | 2018-04-06 02:21 | PN ---
DATE: 04/05/2018 SUBJECTIVE: The patient is a 62-year-old male. The patient was seen and examined at the bedside on 04/05/2018. Looking comfortable. No fever. No chills. No hematuria or hematochezia. No swelling of the leg. No chest pain. No palpitation. Abdominal pain is better. PHYSICAL EXAMINATION: VITAL SIGNS: Temperature 98.7, pulse 57, respiratory rate 14, blood pressure 103/63, and pulse oximetry 96%. HEENT: Head is normocephalic and atraumatic. Eyes PERRLA. Extraocular muscles intact. Conjunctivae clear. Nose patent. Mucous membranes moist. NECK: Supple. No carotid bruits. No JVD or thyromegaly. CHEST: Bilaterally symmetrical. HEART: S1 and S2 positive. LUNGS: Clear to auscultation. ABDOMEN: Soft. Bowel sounds present. No organomegaly. EXTREMITIES: No edema. No cyanosis. NEUROLOGIC: The patient is awake and alert. Moving all four extremities. No focal deficits. MEDICATIONS: Elavil, Depakote, insulin, Claritin, magnesium oxide, Zofran, and pantoprazole. LABORATORY DATA: White blood cells 6.7, hemoglobin 11, hematocrit 33.3, and platelets 181. Sodium 139, potassium 3.8, BUN 7, creatinine 0.8, and glucose 134. ASSESSMENT AND PLAN: Mr. Elías Madden is a 62-year-old male with anemia, status post blood transfusion; hyperchloremia; hyperglycemia; history significant for hypertension; hypercholesterolemia, diabetes mellitus, asthma, with abdominal pain and dark stool, acute symptomatic blood loss, peptic ulcer disease. Endoscopy was done by Dr. Vaz. Now according to Gastroenterology, we can discontinue proton pump inhibitor drip. Start Protonix 40 mg twice a day. Advance the soft diet. Need close outpatient monitoring. The patient will need endoscopy after four to five weeks to recheck the healing process. Seen by Gastroenterology. Repeat labs. We will follow up. Elina Cole MD
[2018-04-06] MEDS ORDERED: Pantoprazole 40 mg EC Tab PO SCH (06:00)
[2018-04-06] MEDS: Insulin Reg-LOW-Coverage SC SCH ×3 (08:43→16:56)
[2018-04-06] MEDS: Magnesium Oxide 400 mg Tab UD PO SCH (10:52)
[2018-04-06] MEDS: FLUTICASONE SALMETEROL IH SCH (11:02)
[2018-04-06 14:50] VITALS: BP 108/69; PULSE 73; TEMP 97.6; O2SAT 96
--- NOTE | 2018-04-06 17:57 | CP.PCM.PN ---
<MaryaudielishaOdilon - Last Filed: 04/06/18 19:21> Subjective - Date & Time of Evaluation Date of Evaluation: 04/06/18 Time of Evaluation: 09:30 - Subjective Subjective: PGY6 GI Fellow Progress Note Patient seen and examined bedside this morning. The patient states that he is feeling well. Tolerating diet without difficulty or pain. Did note one small dark bowel movement last night, his first in several days. 12 system ROS performed and negative except where stated Objective - Vital Signs/Intake and Output Vital Signs (last 24 hours): Temp Pulse Resp BP Pulse Ox 97.6 F 73 20 108/69 96 04/06/18 14:00 04/06/18 14:00 04/06/18 14:00 04/06/18 14:00 04/06/18 14:00 - Medications Medications: Current Medications Amitriptyline HCl (Elavil) 20 mg PO DAILY [facility] Last Admin: 04/06/18 10:52 Dose: 20 mg Divalproex Sodium (Depakote Sprinkles) 125 mg PO HS [facility] Last Admin: 04/05/18 21:28 Dose: 125 mg Home Med (Home Med) 1 unit IH Q12 [facility] Last Admin: 04/06/18 11:02 Dose: 1 unit Insulin Human Regular (Humulin R Low) 0 units SC ACHS [facility]; Protocol Last Admin: 04/06/18 16:56 Dose: Not Given Loratadine (Claritin) 10 mg PO DAILY [facility] Last Admin: 04/06/18 10:52 Dose: 10 mg Magnesium Oxide (Mag-Ox) 400 mg PO BID [facility] Last Admin: 04/06/18 10:52 Dose: 400 mg Ondansetron HCl (Zofran Inj) 4 mg IVP Q6 PRN PRN Reason: Nausea/Vomiting Pantoprazole Sodium (Protonix Ec Tab) 40 mg PO 0600,1600 [facility] Last Admin: 04/06/18 08:49 Dose: 40 mg - Labs Labs: 04/05/18 08:20 04/04/18 07:30 PT 12.4 SECONDS (9.4-12.5) 04/03/18 05:00 INR 1.08 04/03/18 05:00 APTT 27.6 Seconds (25.1-36.5) 04/02/18 08:30 - Constitutional Appears: Non-toxic, No Acute Distress - Eye Exam Eye Exam: EOMI, PERRL - ENT Exam ENT Exam: Mucous Membranes Moist - Respiratory Exam Respiratory Exam: Clear to Ausculation Bilateral. absent: Rales, Rhonchi, Wheezes - Cardiovascular Exam Cardiovascular Exam: RRR, +S1, +S2 - GI/Abdominal Exam GI & Abdominal Exam: Soft, Normal Bowel Sounds. absent: Distended, Firm, Guarding, Rigid, Tenderness, Organomegaly - Extremities Exam Extremities Exam: Normal Inspection. absent: Pedal Edema - Neurological Exam Neurological Exam: Alert, Awake, Oriented x3 - Psychiatric Exam Psychiatric exam: Normal Affect, Normal Mood - Skin Skin Exam: Dry, Warm Assessment and Plan - Assessment and Plan (Free Text) Assessment: Patient is a 62yo male with PMHx significant for HTN, HLD, DM and asthma who presented with abdominal pain and dark stool -Acute, symptomatic blood loss anemia -Peptic ulcer disease Plan: -Continue PPI with pantoprazole 40mg PO BID 30 minutes before meals -Repeat endoscopy in 1 month to check healing; patient states he is to follow up with PCP and get GI referral -Diet as tolerated -OK to D/C from GI standpoint with close outpatient follow up <Beth Vaz V - Last Filed: 04/08/18 00:24> Objective - Vital Signs/Intake and Output Vital Signs (last 24 hours): Temp Pulse Resp BP Pulse Ox 97.6 F 73 20 108/69 96 04/06/18 14:00 04/06/18 14:00 04/06/18 14:00 04/06/18 14:00 04/06/18 14:00 - Labs Labs: 04/05/18 08:20 04/04/18 07:30 PT 12.4 SECONDS (9.4-12.5) 04/03/18 05:00 INR 1.08 04/03/18 05:00 APTT 27.6 Seconds (25.1-36.5) 04/02/18 08:30 Attending/Attestation - Attestation I have personally seen and examined this patient.: Yes I have fully participated in the care of the patient.: Yes I have reviewed all pertinent clinical information, including history, physical exam and plan: Yes
== END 2018-04-06 18:04 | disposition home or self-care (01) | DRG 378 ==
LOC: ED 15:40 → ERH 19:25 → 2RSO 21:40 → CCU 04-02 16:46 → 5RSO 04-05 14:18
PROVIDERS: ADMIT Internal Medicine; ATTEND Internal Medicine
PROC: 0W3P8ZZ Control Bleeding in Gastrointestinal Tract, Via Natural or Artificial Opening Endoscopic (ICD-10-PCS; principal; 2018-04-02 14:00)
DX: K25.4 Chronic or unspecified gastric ulcer with hemorrhage (principal); N39.0 Urinary tract infection, site not specified; K26.4 Chronic or unspecified duodenal ulcer with hemorrhage; D50.0 Iron deficiency anemia secondary to blood loss (chronic); E11.22 Type 2 diabetes mellitus with diabetic chronic kidney disease; E11.65 Type 2 diabetes mellitus with hyperglycemia; E78.00 Pure hypercholesterolemia, unspecified; E78.5 Hyperlipidemia, unspecified; E83.42 Hypomagnesemia; E86.0 Dehydration; E87.8 Other disorders of electrolyte and fluid balance, not elsewhere classified; I12.9 Hypertensive chronic kidney disease with stage 1 through stage 4 chronic kidney disease, or unspecified chronic kidney disease; J44.9 Chronic obstructive pulmonary disease, unspecified; N18.9 Chronic kidney disease, unspecified; Z79.82 Long term (current) use of aspirin; Z87.442 Personal history of urinary calculi